=== PATIENT | female | born 2000 | race Two or more races ===

== ENCOUNTER 2025-04-16 08:51 | Outpatient (AMB) | payer OTHER, SELFPAY ==
[2025-04-16 09:07] VITALS: BP 124/83; PULSE 84; RESP 17; TEMP 36.7; O2SAT 98; BMI 32.8
--- NOTE | 2025-04-16 09:07 | AMB.OBINITIA ---
Vital Signs 04/16/25 09:07 Height 1.73 m Height Method Stated Weight 98.089 kg Weight Measurement Method Standing Scale BMI 32.8 BP 124/83 Blood Pressure Source Automatic Cuff Blood Pressure Location Right Upper Arm Position Sitting Respiration 17 Pulse 84 Pulse Source Monitor Temp 98.1 F Temp Source Temporal Artery Scan Pulse Oximetry (%) 98 Oxygen Delivery Method Room Air Allergies/Home Meds Allergies & Medications Allergies No Known Allergies Allergy (Verified 04/16/25 09:08) Medication Reconciliation PNV 153-FA 400 mcg-om3 35 mg-dha 25 mg-epa 5 mg-fish oil chew tablet ( Gummies) 1 tab PO QDAY 90 days #90 tabs 04/16/25 [Rx] doxylamine 10 mg-pyridoxine (vit B6) 10 mg tablet,delayed release (Diclegis) 1 tab PO BID 30 days #60 tabs 04/16/25 [Rx] Intake Visit Data Collection New Patient or Established: Established Patient (seen at [facility] within 3 years) Reason for Visit:: OBI Seen by Clinical Staff ONLY (RN/MA): No Restaurant Supervisor Required: No Do You Feel Safe at Home: Yes Authorities Contacted: N/A PCP or OBGYN visit in last 3 months: No Hx Now: Yes Are you currently on any form of Control: No Pain Present Currently: No Pain Scale Used: Castillo-Taylor/Numerical Pain scale:: 0 Smoking Status Smoking Status: Never smoker Questionnaires Covid-19 Vaccine Questionnaire Has patient been vacinated for Covid-19 Have you been vacinated for Covid-19: Yes PHQ-9 PHQ-2 Over the last 2 weeks, how often have you been bothered by any of the following problems? 1. Little interest or pleasure in doing things: not at all 2. Feeling down, depressed, or hopeless: not at all Total score: 0 PHQ-9 3. Trouble falling or staying asleep, or sleeping too much: Not at all 4. Feeling tired or having little energy: Not at all 5. Poor appetite or overeating: Not at all 6. Feeling bad about yourself - or that you are a failure or have let yourself or your family down: Not at all 7. Trouble concentrating on things, such as reading the newspaper or watching television: Not at all 8. Moving or speaking so slowly that other people could have noticed? - Or the opposite - being so fidgety or restless that you have been moving around a lot more than usual: not at all 9. Thoughts that you would be better off or of hurting yourself in some way: Not at all Total score: 0 If you checked off any problems, how difficult have these problems made it for you to do your work, take care of things at home, or get along with other people?: not difficult at all Source: Developed by Drs. Collins Asencio, Dottie Whitfield, Basilio Eden and colleagues, with an educational joey from [employer]. Depression screen completed yes Social History Living Situation History Marital Status: Life Partner Lives With: Family Housing: House Tobacco History Smoking Status: Never smoker Second Hand Smoke Exposure: No Alcohol History Alcohol Intake: Never Domestic Abuse History Do You Feel Safe at Home: Yes History of Present Illness HPI Narrative 24-year-old 1 para 0 for OBI. Patient has a last menstrual period January 09, 2024. This gives a due date October 10, 2025. Sure dates. Menses are regular every month. Patient denies any existence existing health issues. She reports that she drink occasionally but none with the . And she had a history of septorhinoplasty. She had some spotting and bleeding with this a week ago and was seen in [place] for that. Treated with progestation x 1 week. An ultrasound was done and she was found to have twins at 14 weeks. Spotting some now. Occasional cramp. OB Initial Visit OB Flowsheet OB Flowsheet Initial Weight: Not Recorded Date <del>?</del> EGA Weight BP Alb Glu CTX Pres Fundal ht FHR Mov Dilation Station Effacement Hx Notes Visit Note 04/16/25 <del>?</del> 14w 0d 98.089 kg 124/83 absent unknown 15 142 active 24-year-old 1 para 0 for OB initial. Patient has a last period January 08, 2025. Estimated due date October 10, 2025. Patient had gone to [place] for vacation last week and was seen in the ER there. Ultrasound done and she has a twin gestation at 14 weeks. And she was given progesterone x 7 days which she completed. She has some spotting now but no cramps. She denies any existing medical problems. She has a previous history she drinks occasionally but none with the . And she had a septorhinoplasty.. 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 Schedule MFM appointment at [facility]. OB panel, NIPT and carrier screen today. I ordered Gummies for her and I started Diclegis to take twice a day. Discussed comfort measures for nausea and vomiting I discussed ER precautions and danger signs and symptoms and to return in 2 weeks with OB. Menstrual History Menstrual reliability: unknown Flow: normal Menstrual regularity: irregular Monthly: No Age at menarche: 11 On control pills at conception: No OB History : 1 Infection History & Risk Evaluation History of STDs: none HIV risk evaluation: low risk Hepatitis B risk evaluation: low risk Patient or partner has history of Genital Herpes: No Varicella/chicken pox status: unknown Genetic Screening & History Genetic Screening/Teratology Counseling - Includes patient, baby's father, or anyone in either family with: 1. Patient's age 35 years or older as of estimated date of delivery: No 2. Thalassemia (Lithuanian, German, Mediterranean, or Background); MCV less than 80: No 3. Neural Tube Defect (Meningomyelocele, Spina Bifida, or Anencephaly): No 4. Congenital Heart Defect: No 5. Down Syndrome: No 6. Nima-Sachs (Ashkenazi Anabaptist, Cajun, Czech Kosovan): No 7. Parvin Disease (Ashkenazi Anabaptist): No 8. Familial Dysautonomia (Ashkenazi Anabaptist): No 9. Sickle Cell Disease or Trait (): No 10. Hemophilia or other blood disorders: No 11. Muscular Dystrophy: No 12. Cystic Fibrosis: No 13. [place]'s Chorea: No 14. Mental Retardation/Autism: No 15. Other inherited genetic or chromosomal disorder: No 16. Maternal Metabolic Disorder (EG,TYPE 1 Diabetes, PKU): No 17. Patient or baby's father had a child with defects not listed above: No 18. Recurrent loss or a stillbirth: No 19. Medications (including supplements, vitamins, herbs or otc drugs)/illicit/recreational drugs/alcohol since last menstrual period: No 20. Any other: No Infection History 1. Live with someone with TB or exposed to TB: No 2. Rash or viral illness since last menstrual period: No 3. Hepatitis B,C: No Other (see comments) Source: [employer] Review of Systems Review of Systems Systems Reviewed: All systems reviewed, normal except as documented Exam General Limitations: no limitations General Appearance: alert, in no apparent distress, comfortable, cooperative, healthy appearing, well developed and well groomed Head Head exam: atraumatic, normocephalic and normal inspection Chest Chest inspection: Present normal inspection and symmetric chest wall rise Resp Respiratory exam: Present normal lung sounds bilaterally Card Cardiovascular exam: Present regular rate, normal rhythm and normal heart sounds Abdominal Abdominal exam: Present soft and normal bowel sounds Psych Psychiatric exam: Present normal affect and normal mood Office Procedures OB Clinic LOC & Office Proc's Nursing/Assessment Patient Status: Established Patient OB Clinic Nursing Assessment: Medication Reconciliation, Update PMH in EMR and Vital Signs OB Clinic Coordination of Care: Complex Care and Chronic Disease 1-5, Consent,records obtained, informed consent, Education Simp Pt/Fam, Lab and Imaging orders and Staff clarify orders Special Needs: Heart tones Established Patient Charge Established Patient Point Assignment: 130 Established Patient Point Charge: EP Level 4 (120-155) Assessment & Plan Diagnosis / Problem List (1) Encounter for supervision of high risk in second trimester, antepartum: Status: Acute (2) Twin gestation in second trimester: Status: Acute Plan Plan for today is to draw OB panel with hCG quant x 1, and hemoglobin A1c. Discussed NIPT and carrier screens with patient she is going to contact her insurance to see if it is covered or not. Referral to maternal- medicine made. I discussed SAB precautions and increased rest. Increase fluids. I gave patient Diclegis twice daily for nausea and vomiting. And discussed comfort measures as well and patient to return in 2 weeks for follow-up with OB Additional Plan Follow Up: 2 Weeks (obc)
== END 2025-04-16 09:36 | disposition home or self-care (01) ==
PROVIDERS: Supervising Provider Advanced Practice Midwife; Visit Provider Advanced Practice Midwife
DX: O09.892 Supervision of other high risk pregnancies, second trimester (principal); O30.002 Twin pregnancy, unspecified number of placenta and unspecified number of amniotic sacs, second trimester; Z3A.14 14 weeks gestation of pregnancy
CPT/HCPCS: 99214; G0463

== ENCOUNTER → 2025-04-16 | Outpatient (CLI) | payer OTHER, SELFPAY ==
[2025-04-16 11:36] LABS: Basophils # (Auto) 0.0 Thou/mm3 (0.0-0.2); Basophils % (Auto) 0 % (0-2.5); Eosinophils # (Auto) 0.1 Thou/mm3 (0.0-0.5); Eosinophils % (Auto) 1 % (0-10); Hematocrit 36.9 % (36.0-46.0); Hemoglobin 13.2 g/dL (12.0-16.0); Immature Granulocytes Auto 0.03 Thou/mm3 (0.00-0.00); Lymphocytes # (Auto) 1.5 Thou/mm3 (1.0-4.8); Lymphocytes % (Auto) 14 % (10-50); Mean Corpuscular HGB Conc 35.8 g/dl (31.0-37.0); Mean Corpuscular Hemoglobin 32.4 pg (25.0-35.0); Mean Corpuscular Volume 91 fL (80-100); Monocytes # (Auto) 0.7 Thou/mm3 (0.0-0.8); Monocytes % (Auto) 7 % (0-12); Neutrophils # (Auto) 8.1 Thou/mm3 (1.8-7.7); Neutrophils % (Auto) 78 % (37-80); Nucleated Red Blood Cell # 0.00 Thou/mm3 (0.00-0.00); Nucleated Red Blood Cell % 0 /100 WBC (0); Platelet Count 261 Thou/mm3 (140-440); RDW Standard Deviation 42.4 fL (36.4-46.3); Red Blood Count 4.07 Miln/mm3 (4.00-5.20); White Blood Count 10.5 Thou/mm3 (3.6-11.0)
[2025-04-16 11:59] LABS: Glucose Estimated Average 97 mg/dL (80-131); Hemoglobin A1C 5.0 % Hgb (4.8-6.0)
[2025-04-16 12:41] LABS: Hepatitis B Surface Antigen Non Reactive (Non React); Hepatitis C Antibody Non Reactive (Non React); Rubella, IgG Antibody Reactive (Immune)
[2025-04-16 12:43] LABS: Beta HCG,Quantitative 104526 mIU/mL (<5.0)
[2025-04-16 13:44] LABS: Chlamydia trachomatis PCR Negative (Not Detect); Neisseria Gonorrhoeae DNA PCR Negative (Not Detect); Trichomonas Negative (Negative)
[2025-04-16 16:08] LABS: HIV (1&2) Antibody Rapid Non-Reactive
== END | disposition home or self-care (01) ==
LOC: COPL 09:55
PROVIDERS: PCP Family Medicine; Referring Provider Advanced Practice Midwife; Visit Provider Advanced Practice Midwife
DX: Z34.90 Encounter for supervision of normal pregnancy, unspecified, unspecified trimester (principal)
CPT/HCPCS: 36415; 83036; 84702; 85025; 86703; 86762; 86803; 86850; 86900; 86901; 87086; 87340; 87491; 87591; 87661

== ENCOUNTER 2025-05-02 10:26 | Outpatient (AMB) | payer OTHER, SELFPAY ==
[2025-05-02 11:05] VITALS: BP 129/81; PULSE 87; RESP 16; TEMP 36.9; O2SAT 95; BMI 33.5
--- NOTE | 2025-05-02 11:05 | AMB.OBVISIT ---
Vital Signs 05/02/25 11:05 Height 1.73 m Height Method Stated Weight 100.244 kg Weight Measurement Method Standing Scale BMI 33.5 BP 129/81 Blood Pressure Source Automatic Cuff Blood Pressure Location Left Upper Arm Position Sitting Respiration 16 Pulse 87 Pulse Source Monitor Temp 98.4 F Temp Source Oral Pulse Oximetry (%) 95 Oxygen Delivery Method Room Air Allergies/Home Meds Allergies & Medications Allergies No Known Allergies Allergy (Verified 07/02/25 08:36) Medication Reconciliation aspirin 81 mg tablet 81 mg PO QDAY 07/02/25 [History Confirmed 07/02/25] docosahexaenoic acid 200 mg capsule ( DHA) mg PO 07/02/25 [History Confirmed 07/02/25] Intake Visit Data Collection New Patient or Established: Established Patient (seen at [facility] within 3 years) Reason for Visit:: CARE Seen by Clinical Staff ONLY (RN/MA): No Hogshead Mat Assembler Required: No Do You Feel Safe at Home: Yes Authorities Contacted: N/A PCP or OBGYN visit in last 3 months: Yes Hx Now: Yes Are you currently on any form of Control: No Pain Present Currently: No Pain Scale Used: Castillo-Taylor/Numerical Pain scale:: 0 Smoking Status Smoking Status: Never smoker Questionnaires Covid-19 Vaccine Questionnaire Has patient been vacinated for Covid-19 Have you been vacinated for Covid-19: Yes PHQ-9 PHQ-2 Over the last 2 weeks, how often have you been bothered by any of the following problems? 1. Little interest or pleasure in doing things: not at all 2. Feeling down, depressed, or hopeless: not at all Total score: 0 PHQ-9 3. Trouble falling or staying asleep, or sleeping too much: Not at all 4. Feeling tired or having little energy: Not at all 5. Poor appetite or overeating: Not at all 6. Feeling bad about yourself - or that you are a failure or have let yourself or your family down: Not at all 7. Trouble concentrating on things, such as reading the newspaper or watching television: Not at all 8. Moving or speaking so slowly that other people could have noticed? - Or the opposite - being so fidgety or restless that you have been moving around a lot more than usual: not at all 9. Thoughts that you would be better off or of hurting yourself in some way: Not at all Total score: 0 Source: Developed by Drs. Collins Asencio, Dottie Whitfield, Basilio Eden and colleagues, with an educational joey from [employer]. Depression screen completed yes Social History Living Situation History Lives With: Family Housing: House Tobacco History Smoking Status: Never smoker Second Hand Smoke Exposure: No Alcohol History Alcohol Intake: Never Domestic Abuse History Do You Feel Safe at Home: Yes Care OB Visit Log OB Flowsheet Initial Weight: Not Recorded Date <del>?</del> EGA Weight BP Alb Glu CTX Pres Fundal ht FHR Mov Dilation Station Effacement Hx Notes Visit Note 04/16/25 <del>?</del> 15w 0d 98.089 kg 124/83 absent unknown 15 A 142 <del>?</del> B active 24-year-old 1 para 0 for OB initial. Patient has a last period January 08, 2025. Estimated due date October 10, 2025. Patient had gone to [place] for vacation last week and was seen in the ER there. Ultrasound done and she has a twin gestation at 14 weeks. And she was given progesterone x 7 days which she completed. She has some spotting now but no cramps. She denies any existing medical problems. She has a previous history she drinks occasionally but none with the . And she had a septorhinoplasty.. 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 Schedule MFM appointment at [facility]. OB panel, NIPT and carrier screen today. I ordered Gummies for her and I started Diclegis to take twice a day. Discussed comfort measures for nausea and vomiting I discussed ER precautions and danger signs and symptoms and to return in 2 weeks with OB. 05/02/25 <del>?</del> 17w 2d 100.244 kg 129/81 absent unknown 20 A 135 <del>?</del> B 145 active - Lynne Santillan is a patient with dichorionic diamniotic twins presenting for follow-up after experiencing bleeding and clotting. - She reports bleeding and clotting for approximately one month duration. - Following the bleeding episode, she began experiencing some discharge. - She has pictures of the discharge to show the provider. - She visited the emergency room on April 17 at [facility] due to her symptoms. - The ER recommended follow-up with obstetrics but would not accept her as a patient at that time. - She has been seen by Randi (presumably another provider) once before this visit. - She underwent NIPT testing approximately 2 Saturdays prior to this visit through [facility]. - She and her partner do not want to know the genders of the babies. 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 - Patient to request workplace accommodation forms from for completion - Maternal- medicine consultation for twin surveillance starting around 20 weeks - Follow precautions: avoid heavy lifting, avoid abdominal trauma, avoid carrying heavy weights, limit walking long distances and climbing stairs - Retrieve NIPT results from [facility] - Follow up in 2 weeks (as requested at [facility]) 05/21/25 <del>?</del> 20w 0d 104.099 kg 133/87 absent unknown A 150 <del>?</del> B 135 active at 19w0d with twin gestation; NIPT negative for SMA, CF, T21/18/13; OB labs normal; both FHRs detected; pt experiencing nausea with PNVs, no cramping/spotting. Plan: Confirm correct NIPT for twins via [facility], repeat if needed; f/u at [facility] Monday for anatomy scan; switch to gummy PNVs; RTC in 2w; call pt with lab update. 06/10/25 <del>?</del> 22w 6d 105.914 kg 125/82 absent unknown A 145 <del>?</del> B 155 - Lynne Santillan is a female presenting for an ultrasound examination of her twin . - The ultrasound revealed: - Twin A: Positioned showing its buttocks - Twin B: Both heads and the dividing membrane visible - Patient expressed interest in obtaining side view images of the fetuses Plan - Follow up for next ultrasound appointment - Attend scheduled MFM (Maternal- Medicine) appointment for high-resolution scan 07/02/25 <del>?</del> 26w 0d 107.955 kg 122/86 absent unknown A 131 <del>?</del> B 141 active - Lynne Santillan is a gravity 1 para 0 patient at 25 weeks and 0 days gestation with dichorionic diamniotic twin here for routine care. - Patient had [facility] ultrasound on 06/23/2025 showing twin with fetus A (female, cephalic, 830 grams, 80th percentile) and fetus B (male, transverse, 725 grams, 39th percentile) with 13% discordancy. - Both babies demonstrate normal anatomy with normal amniotic fluid levels. - Patient reports no specific complaints or concerns during this visit. - NIPT testing has been completed. - Patient is approaching 26 weeks gestation with due date of 10/08 based on updated LMP of 01/04. - Schedule her next appointment in 4 weeks - Perform one-hour glucose test today - Continue [facility] ultrasounds; her next appointment at [facility] on 07/14 - Plan for weekly visits after 30 weeks - Administer betamethasone shots at 32 weeks for lung maturation - Conduct anemia check and RPR test between 28-30 weeks - Anticipate delivery at 37 weeks or earlier - Determine route of delivery based on positioning closer to delivery date - Complete HR form for maternity leave, recommended around 28-30 weeks SANA Calculator Estimated Delivery Date Method Current WG Current Estimate 10/08/25 Ultrasound #1 26w 6d Other Estimates 10/15/25 LMP (Uncertain) 25w 6d # 2 Notes Visit Date: 07/02/25 Last Updated by: Angel Schuler MD - Date: 06/23/2025 - [facility] ultrasound: Twin , dichorionic diamniotic, 2nd trimester at 25 weeks 0 days gestation - Fetus A: 830 grams (1 lb 13 oz), 80th percentile, female, cephalic presentation, normal anatomy, normal amniotic fluid - Fetus B: 725 grams (1 lb 10 oz), 39th percentile, male, transverse presentation with head to maternal right, normal anatomy, normal amniotic fluid - Growth discordancy: 13% - Cervix: long and closed on transabdominal ultrasound - NIPT test: completed (results not specified) Visit Date: 05/21/25 Last Updated by: Angel Schuler MD - NIPT ([facility]): - SMA: Negative - Cystic fibrosis: Negative - Trisomy 21, 18, 13: Negative - sex: Male (potentially unreliable due to twin gestation) - Initial OB panel ([facility]): - Hepatitis B: Negative - Hepatitis C: Negative - HIV: Negative - Gonorrhea: Negative - Chlamydia: Negative - Trichomonas: Negative - Hemoglobin: 13.2 g/dL - Urinalysis: Within normal limits - Ultrasound: - Twin gestation confirmed - heartbeats visualized for both twins - Different heart rates observed for each twin Visit Date: 04/16/25 Last Updated by: Randi Painting, [facility] 24 yo . IUP 14 week,twins. LMP 01/08/25. EDC: 10/10/25 Assessment & Plan Diagnosis / Problem List (1) Dichorionic diamniotic twin gestation: Status: Acute (2) Twin gestation in second trimester: Status: Acute (3) Encounter for supervision of high risk in second trimester, antepartum: Status: Acute Plan Problem List - Twin - Resolved retroplacental hematoma Assessment Twin at approximately 15-16 weeks gestation with dichorionic diamniotic twins, with Baby A heart rate 140 bpm and Baby B heart rate 153 bpm. History of bleeding and clotting for approximately one month that has resolved, likely representing a retroplacental hematoma that has resolved as current ultrasound shows placenta is clear without clots. Patient presented to emergency room on April 17 for evaluation. Previous ultrasound from April 17 showed Baby A at 14 weeks 4 days and Baby B at 15 weeks 1 day with heart rates of 149 and 143 bpm respectively, normal amniotic fluid, and no placental hemorrhage noted. Current examination shows both fetuses appear grossly normal with clear placentas. 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
== END 2025-05-02 11:53 | disposition home or self-care (01) ==
LOC: HODSOBC 10:26
PROVIDERS: Supervising Provider Obstetrics & Gynecology; Visit Provider Obstetrics & Gynecology
DX: O09.892 Supervision of other high risk pregnancies, second trimester (principal); O30.042 Twin pregnancy, dichorionic/diamniotic, second trimester; O32.2XX2 Maternal care for transverse and oblique lie, fetus 2; Z3A.17 17 weeks gestation of pregnancy
CPT/HCPCS: 99214; G0463

== ENCOUNTER 2025-05-21 10:33 | Outpatient (AMB) | payer OTHER, SELFPAY ==
[2025-05-21 10:45] VITALS: BP 133/87; PULSE 98; RESP 17; TEMP 36.8; O2SAT 98; BMI 34.7
--- NOTE | 2025-05-21 10:45 | OBCLNT_ITS ---
Vital Signs 05/21/25 10:45 Height 1.73 m Height Method Measured Weight 104.099 kg Weight Measurement Method Standing Scale BMI 34.7 BP 133/87 H Blood Pressure Source Automatic Cuff Blood Pressure Location Right Upper Arm Position Sitting Respiration 17 Pulse 98 Pulse Source Monitor Temp 98.3 F Temp Source Temporal Artery Scan Pulse Oximetry (%) 98 Oxygen Delivery Method Room Air Allergies/Home Meds Allergies & Medications Allergies No Known Allergies Allergy (Verified 05/21/25 10:46) Medication Reconciliation PNV 153-FA 400 mcg-om3 35 mg-dha 25 mg-epa 5 mg-fish oil chew tablet ( Gummies) 1 tab PO QDAY 90 days #90 tabs 04/16/25 [Rx Confirmed 05/21/25] doxylamine 10 mg-pyridoxine (vit B6) 10 mg tablet,delayed release (Diclegis) 1 tab PO BID 30 days #60 tabs 04/16/25 [Rx Confirmed 05/21/25] Intake Visit Data Collection New Patient or Established: Established Patient (seen at [facility] within 3 years) Reason for Visit:: OBC Consent obtained for Telemed Visit: No Seen by Clinical Staff ONLY (RN/MA): No Rn Bsn Required: No Do You Feel Safe at Home: Yes Authorities Contacted: N/A PCP or OBGYN visit in last 3 months: Yes Date of Last PCP or OBGYN visit: 05/02/25 Hx Now: Yes Are you currently on any form of Control: No Pain Present Currently: No Pain Scale Used: Castillo-Taylor/Numerical Pain scale:: 0 Smoking Status Smoking Status: Never smoker Questionnaires Covid-19 Vaccine Questionnaire Has patient been vacinated for Covid-19 Have you been vacinated for Covid-19: Yes PHQ-9 PHQ-2 Over the last 2 weeks, how often have you been bothered by any of the following problems? 1. Little interest or pleasure in doing things: not at all PHQ-9 8. Moving or speaking so slowly that other people could have noticed? - Or the opposite - being so fidgety or restless that you have been moving around a lot more than usual: not at all Source: Developed by Drs. Collins Asencio, Dottie Whitfield, Basilio Eden and colleagues, with an educational joey from [employer]. Social History Living Situation History Lives With: Family Housing: House Tobacco History Smoking Status: Never smoker Second Hand Smoke Exposure: No Alcohol History Alcohol Intake: Never Domestic Abuse History Do You Feel Safe at Home: Yes Care OB Visit Log OB Flowsheet Initial Weight: Not Recorded Date -?-?-?-?-?-?-?-?-?-?-?-?- EGA Weight BP Alb Glu CTX Pres Fundal ht FHR Mov Dilation Station Effacement Hx Notes Visit Note 04/16/25 -?-?-?-?-?-?-?-?-?-?-?-?- 14w 0d 98.089 kg 124/83 absent unknown 15 A 142 -?-?-?-?-?-?-?-?-?-?-?-?- B active 24-year-old g ravida 1 para 0 for OB initial. Patient has a last period January 08, 2025. Estimated due date October 10, 2025. Patient had gone to [place] for vacation last week and was seen in the ER there. Ultrasound done and she has a twin gestation at 14 weeks. And she was given progesterone x 7 days which she completed. She has some spotting now but no cramps. She denies any existing medical problems. She has a previous history she drinks occasionally but none with the . And she had a septorhinoplasty.. 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 Winnie RENDON appointment at [facility]. OB panel, NIPT and carrier screen today. I ordered Gummies for her and I started Diclegis to take twice a day. Discussed comfort measures for nausea and vomiting I discussed ER precautions and danger signs and symptoms and to return in 2 weeks with OB. 05/21/25 -?-?-?-?-?-?-?-?-?-?-?-?- 19w 0d 104.099 kg 133/87 absent unknown A 150 -?-?-?-?-?-?-?-?-?-?-?-?- B 135 active at 19w0d with twin gestation; NIPT negative for SMA, CF, T21/18/13; OB labs normal; both FHRs detected; pt experiencing nausea with PNVs, no cramping/spotting. Plan: Conf irm correct NIPT for twins via [facility], repeat if needed; f/u at [facility] Monday for anatomy scan; switch to gummy PNVs; RTC in 2w; call pt with lab update. SANA Calculator Estimated Delivery Date Method Current WG Current Estimate 10/15/25 LMP (Certain) 19w 0d # 2 Notes Visit Date: 05/21/25 Last Updated by: Angel Schuler MD - NIPT ([facility]): - SMA: Negative - Cystic fibrosis: Negative - Trisomy 21, 18, 13: Negative - sex: Male (potentially unreliable due to twin gestation) - Initial OB panel ([facility]): - Hepatitis B: Negative - Hepatitis C: Negative - HIV: Negative - Gonorrhea: Negative - Chlamydia: Negative - Trichomonas: Negative - Hemoglobin: 13.2 g/dL - Urinalysis: Within normal limits - Ultrasound: - Twin gestation confirmed - heartbeats visualized for both twins - Different heart rates observed for each twin Visit Date: 04/16/25 Last Updated by: Randi Painting CNM 24 yo . IUP 14 week,twins. LMP 01/08/25. EDC: 10/10/25 Office Procedures OB Clinic LOC & Office Proc's Nursing/Assessment Patient Status: Established Patient OB Clinic Nursing Assessment: Medication Reconciliation, Update PMH in EMR and Vital Signs OB Clinic Coordination of Care: Complex Care and Chronic Disease 1-5, Consent,records obtained, informed consent and Education Simp Pt/Fam Special Needs: Heart tones Established Patient Charge Established Patient Point Assignment: 105 Established Patient Point Charge: EP Level 3 (80-115) Assessment & Plan Diagnosis / Problem List (1) Twin gestation in second trimester: Status: Acute (2) Encounter for supervision of high risk in second trimester, antepartum: Status: Acute
== END 2025-05-21 11:25 | disposition home or self-care (01) ==
LOC: HODSOBC 10:33
PROVIDERS: Supervising Provider Obstetrics & Gynecology; Visit Provider Obstetrics & Gynecology
DX: O09.892 Supervision of other high risk pregnancies, second trimester (principal); O30.002 Twin pregnancy, unspecified number of placenta and unspecified number of amniotic sacs, second trimester; Z3A.19 19 weeks gestation of pregnancy
CPT/HCPCS: 99213; G0463

== ENCOUNTER 2025-06-06 08:28 | Outpatient (AMB) | payer OTHER, SELFPAY ==
--- NOTE | 2025-06-06 08:38 | OBCLNT_ITS ---
Vital Signs 06/06/25 08:39 Height 1.73 m Height Method Stated Weight 105.744 kg Weight Measurement Method Standing Scale BMI 35.3 BP 131/84 H Blood Pressure Source Automatic Cuff Blood Pressure Location Left Upper Arm Position Sitting Respiration 20 Pulse 98 Pulse Source Monitor Temp 97.8 F Temp Source Oral Pulse Oximetry (%) 98 Oxygen Delivery Method Room Air Allergies/Home Meds Allergies & Medications Allergies No Known Allergies Allergy (Verified 07/02/25 08:36) Medication Reconciliation aspirin 81 mg tablet 81 mg PO QDAY 07/02/25 [History Confirmed 07/02/25] docosahexaenoic acid 200 mg capsule ( DHA) mg PO 07/02/25 [History Confirmed 07/02/25] blood sugar diagnostic (Blood Glucose Test strips) #100 ea 07/11/25 [Rx] blood-glucose meter #1 ea 07/11/25 [Rx] lancets 21 gauge #100 ea 07/11/25 [Rx] Intake Visit Data Collection New Patient or Established: Established Patient (seen at [facility] within 3 years) Reason for Visit:: CARE Seen by Clinical Staff ONLY (RN/MA): No Plant Propagator Required: No Do You Feel Safe at Home: Yes Authorities Contacted: N/A PCP or OBGYN visit in last 3 months: Yes Hx Now: Yes Are you currently on any form of Control: No Pain Present Currently: No Pain Scale Used: Castillo-Taylor/Numerical Pain scale:: 0 Smoking Status Smoking Status: Never smoker Questionnaires Covid-19 Vaccine Questionnaire Has patient been vacinated for Covid-19 Have you been vacinated for Covid-19: Yes PHQ-9 PHQ-2 Over the last 2 weeks, how often have you been bothered by any of the following problems? 1. Little interest or pleasure in doing things: not at all 2. Feeling down, depressed, or hopeless: not at all Total score: 0 PHQ-9 3. Trouble falling or staying asleep, or sleeping too much: Not at all 4. Feeling tired or having little energy: Not at all 5. Poor appetite or overeating: Not at all 6. Feeling bad about yourself - or that you are a failure or have let yourself or your family down: Not at all 7. Trouble concentrating on things, such as reading the newspaper or watching television: Not at all 8. Moving or speaking so slowly that other people could have noticed? - Or the opposite - being so fidgety or restless that you have been moving around a lot more than usual: not at all 9. Thoughts that you would be better off or of hurting yourself in some way: Not at all Total score: 0 Source: Developed by Drs. Collins Asencio, Dottie Whitfield, Basilio Eden and colleagues, with an educational joey from [employer] Depression screen completed yes Social History Living Situation History Lives With: Family Housing: House Tobacco History Smoking Status: Never smoker Second Hand Smoke Exposure: No Alcohol History Alcohol Intake: Never Domestic Abuse History Do You Feel Safe at Home: Yes Care OB Visit Log OB Flowsheet Initial Weight: Not Recorded Date -?-?-?-?-?-?-?-?-?-?-?-?- EGA Weight BP Alb Glu CTX Pres Fundal ht FHR Mov Dilation Station Effacement Hx Notes Visit Note 04/16/25 -?-?-?-?-?-?-?-?-?-?-?-?- 15w 0d 98.089 kg 124/83 absent unknown 15 A 142 -?-?-?-?-?-?-?-?-?-?-?-?- B active 24-year-old g ravida 1 para 0 for OB initial. Patient has a last period January 08, 2025. Estimated due date October 10, 2025. Patient had gone to [place] for vacation last week and was seen in the ER there. Ultrasound done and she has a twin gestation at 14 weeks. And she was given progesterone x 7 days which she completed. She has some spotting now but no cramps. She denies any existing medical problems. She has a previous history she drinks occasionally but none with the . And she had a septorhinoplasty.. 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 Winnie RENDON appointment at [facility]. OB panel, NIPT and carrier screen today. I ordered Gummies for her and I started Diclegis to take twice a day. Discussed comfort measures for nausea and vomiting I discussed ER precautions and danger signs and symptoms and to return in 2 weeks with OB. 05/02/25 -?-?-?-?-?-?-?-?-?-?-?-?- 17w 2d 100.244 kg 129/81 absent unknown 20 A 135 -?-?-?-?-?-?--?-?-?-?-?-?- B 145 active - Azam Santillan is a patient with dichorionic diamniotic twins presenting for follow-up after experiencing bleeding and clotting. - She reports bleeding and clotting for approximately one month duration. - Following the bleeding episode, she be rohan experiencing some discharge. - She has pictures of the discharge to show the provider. - She visited the emergency room on April 17 at [facility] due to her symptoms. - The ER recommended follow-up with ob xochilt but would not accept her as a patient at that time. - She has been seen by Randi (presumably another provider) once before this visit. - She underwent NIPT testing approximate ly 2 Saturdays prior to this visit through [facility]. - She and her partner do not want to k now the genders of the babies. 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 - Patient to request workplace accommoda tion forms from for completion - Maternal- medicine consultation f or twin surveillance starting around 20 weeks - Follow precautions: avoid heavy liftin g, avoid abdominal trauma, avoid carrying heavy weights, limit walking long distances and climbing stairs - Retrieve NIPT results from [facility] - Follow up in 2 weeks (as requested at [employer]) 05/21/25 -?-?-?-?-?-?-?-?-?-?-?-?- 20w 0d 104.099 kg 133/87 absent unknown A 150 -?-?-?-?-?-?-?-?-?-?-?-?- B 135 active at 19w0d with twin gestation; NIPT negative for SMA, CF, T21//13; OB labs normal; both FHRs detected; pt experiencing nausea with PNVs, no cramping/spotting. Plan: Con firm correct NIPT for twins via [facility], repeat if needed; f/u at [facility] Monday for anatomy scan; switch to gummy PNVs; RTC in 2w; call pt with lab update. 06/06/25 -?-?-?-?-?-?-?-?-?-?-?-?- 22w 2d 105.744 kg 131/84 absent unknown A 145 -?-?-?-?-?-?-?-?-?-?-?-?- B 155 active - Azam Santillan is a female with dichorionic diamniotic twins presenting for routine follow-up after recent ultrasound imaging. - She reports experiencing some sharp pa in, which she attributes to stretching effects related to her . - She mentions her feet were really swol elisa on the day of her recent ultrasound visit. 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 - This is her first ( o ne). - She is currently taking ASA to promote blood flow to the placenta - Continue baby aspirin (blood thinner) to promote blood flow to placenta and support growth - Schedule follow-up appointment in 4 we eks - Continue serial ultrasound monitoring to assess weight discrepancy (currently 3% difference between twins) - Monitor for labor risk given d ichorionic diamniotic twin 06/10/25 -?-?--?-?-?-?-?-?-?-?-?-?- 22w 6d 105.914 kg 125/82 absent unknown A 145 -?-?-?-?-?-?-?-?-?-?-?-?- B 155 - Lynne Santillan is a female presenting for an ultrasound examination of her twin . - The ultrasound revealed: - Twin A: Positioned showing its butto cks - Twin B: Both heads and the dividing membrane visible - Patient expressed interest in obtaining side view images of the f etuses Plan - Follow up for next ultrasound appointm ent - Attend scheduled MFM (Maternal- M edicine) appointment for high-resolution scan 07/02/25 -?-?-?-?-?-?-?-?-?-?-?-?- 26w 0d 107.955 kg 122/86 absent unknown A 131 -?-?-?-?-?-?-?-?-?-?-?-?- B 141 active - Azam Santillan is a gravity 1 para 0 patient at 25 weeks and 0 days gestation with dichorionic diamniotic twin here for routine care. - Patient had [facility] ultrasound on showing twin with fetus A (female, cephalic, 830 grams, 80th percentile) and fetus B (male, transverse, 725 grams, 39th percentile) with 13% discordancy. - Both babies demonstrate normal anatomy with normal amniotic fluid levels. - Patient reports no specific complaints or concerns during this visit. - NIPT testing has been completed. - Patient is approaching 26 weeks gestat ion with due date of 10/08 based on updated LMP of 01/04. - Schedule her next appointment in 4 weeks - Perform one-hour glucose test today - Continue [facility] ultrasounds; her next tennille ointment at [facility] on 07/14 - Plan for weekly visits after 30 weeks - Administer betamethasone shots at 32 w eeks for lung maturation - Conduct anemia check and RPR test betw een 28-30 weeks - Anticipate delivery at 37 weeks or ear lier - Determine route of delivery based on f etal positioning closer to delivery date - Complete HR form for maternity leave, recommended around 28-30 weeks SANA Calculator Estimated Delivery Date Method Current WG Current Estimate 10/08/25 Ultrasound #1 27w 3d Other Estimates 10/15/25 LMP (Uncertain) 26w 3d # 2 Notes Visit Date: 07/02/25 Last Updated by: Angel Schuler MD - Date: 06/23/2025 - [facility] ultrasound: Twin , dichorionic diamniotic, 2nd trimester at 25 weeks 0 days gestation - Fetus A: 830 grams (1 lb 13 oz), 80th percentile, female, cephalic presentation, normal anatomy, normal amniotic fluid - Fetus B: 725 grams (1 lb 10 oz), 39th percentile, male, transverse presentation with head to maternal right, normal anatomy, normal amniotic fluid - Growth discordancy: 13% - Cervix: long and closed on transabdominal ultrasound - NIPT test: completed (results not specified) Visit Date: 06/06/25 Last Updated by: Angel Schuler MD Laboratory, Imaging, and Diagnostic Test Results - Ultrasound (performed in [place]): - Dichorionic diamniotic twin - Baby A: 345 grams (12 ounces), cephalic presentation, normal anatomy survey, female gender, 94th percentile for growth - Baby B: 337 grams, normal anatomy survey, 91st percentile for growth - Weight discrepancy: 3% between twins - Transvaginal cervical length: 4.5 cm - heart rates: Baby A 133 bpm, Baby B 153 bpm Visit Date: 05/21/25 Last Updated by: Angel Schuler MD - NIPT ([facility]): - SMA: Negative - Cystic fibrosis: Negative - Trisomy 21, 18, 13: Negative - sex: Male (potentially unreliable due to twin gestation) - Initial OB panel ([facility] lab): - Hepatitis B: Negative - Hepatitis C: Negative - HIV: Negative - Gonorrhea: Negative - Chlamydia: Negative - Trichomonas: Negative - Hemoglobin: 13.2 g/dL - Urinalysis: Within normal limits - Ultrasound: - Twin gestation confirmed - heartbeats visualized for both twins - Different heart rates observed for each twin Visit Date: 04/16/25 Last Updated by: Randi Painting CNM 24 yo . IUP 14 week,twins. LMP 01/08/25. EDC: 10/10/25 Assessment & Plan Diagnosis / Problem List (1) Gestational diabetes mellitus: Status: Acute (2) Dichorionic diamniotic twin gestation: Status: Acute (3) Twin gestation in second trimester: Status: Acute Plan Problem List - Twin , dichorionic diamniotic - Sharp pain during Assessment Dichorionic diamniotic twin with appropriate growth and low labor risk. Both fetuses demonstrate normal anatomy surveys with Baby A measuring 345 grams (94th percentile) and Baby B measuring 337 grams (91st percentile), representing a 3% weight discrepancy which is within acceptable limits. heart rates are reassuring at 133 bpm for Baby A and 153 bpm for Baby B. Cervical length measures 4.5 centimeters on transvaginal ultrasound, indicating low risk for labor. Patient reports sharp pain consistent with normal stretching. Pedal edema was noted on examination day. Plan - Continue baby aspirin (blood thinner) to promote blood flow to placenta and support growth - Schedule follow-up appointment in 4 weeks - Continue serial ultrasound monitoring to assess weight discrepancy (currently 3% difference between twins) - Monitor for labor risk given dichorionic diamniotic twin 1. Progress Reviewed gestational age, growth, and heart rate. Baby A measuring 345 grams (94th percentile), Baby B measuring 337 grams (91st percentile) with 3% weight discrepancy. heart rates: Baby A 133 bpm, Baby B 153 bpm. Dichorionic diamniotic twin with normal anatomy surveys. Planned frequent visits (every 2 weeks until 36 weeks, then weekly). 2. Instructed patient to monitor movements and report decreases immediately. 3. Testing Counseled on routine third-trimester labs per guidelines. Discussed potential need for ultrasound or monitoring based on risk factors. Cervical length measured at 4.5 cm indicating low risk for labor. 4. Preeclampsia Precaution Educated on preeclampsia signs: severe headache, vision changes, right upper quadrant pain, sudden swelling. Advised urgent reporting of symptoms and discussed blood pressure monitoring if high risk. 5. Labor Precautions Reviewed labor signs: regular contractions, pelvic pressure, back pain, bleeding, or fluid leakage. Instructed to seek immediate care for these symptoms. Cervical length assessment shows low risk for labor. 6. Lifestyle and Delivery Preparation Reinforced vitamins, nutrition, and safe activity. Patient on blood thinner to promote placental blood flow. Discussed plan, pain management, and . Advised on labor preparation (e.g., hospital bag) and expectations. 7. Psychosocial Support Assessed emotional well-being and offered resources for mental health or vanna reddy support.
[2025-06-06 08:39] VITALS: BP 131/84; PULSE 98; RESP 20; TEMP 36.6; O2SAT 98; BMI 35.3
== END 2025-06-06 09:02 | disposition home or self-care (01) ==
LOC: HODSOBC 08:28
PROVIDERS: Supervising Provider Obstetrics & Gynecology; Visit Provider Obstetrics & Gynecology
DX: O09.892 Supervision of other high risk pregnancies, second trimester (principal); O30.042 Twin pregnancy, dichorionic/diamniotic, second trimester; O24.419 Gestational diabetes mellitus in pregnancy, unspecified control; Z3A.22 22 weeks gestation of pregnancy
CPT/HCPCS: 99214; G0463

== ENCOUNTER 2025-06-10 15:17 | Outpatient (AMB) | payer OTHER, SELFPAY ==
[2025-06-10 15:40] VITALS: BP 125/82; PULSE 100; RESP 20; TEMP 36.8; O2SAT 98; BMI 35.4
--- NOTE | 2025-06-10 15:40 | AMB.OBVISIT ---
Vital Signs 06/10/25 15:40 Height 1.73 m Height Method Stated Weight 105.914 kg Weight Measurement Method Standing Scale BMI 35.4 BP 125/82 Blood Pressure Source Automatic Cuff Blood Pressure Location Left Upper Arm Position Sitting Respiration 20 Pulse 100 Pulse Source Monitor Temp 98.2 F Temp Source Oral Pulse Oximetry (%) 98 Oxygen Delivery Method Room Air Allergies/Home Meds Allergies & Medications Allergies No Known Allergies Allergy (Verified 06/10/25 15:41) Medication Reconciliation PNV 153-FA 400 mcg-om3 35 mg-dha 25 mg-epa 5 mg-fish oil chew tablet ( Gummies) 1 tab PO QDAY 90 days #90 tabs 04/16/25 [Rx Confirmed 06/10/25] doxylamine 10 mg-pyridoxine (vit B6) 10 mg tablet,delayed release (Diclegis) 1 tab PO BID 30 days #60 tabs 04/16/25 [Rx Confirmed 06/10/25] Intake Visit Data Collection New Patient or Established: Established Patient (seen at [facility] within 3 years) Reason for Visit:: CARE Seen by Clinical Staff ONLY (RN/MA): No Fur Sorter Required: No Do You Feel Safe at Home: Yes Authorities Contacted: N/A PCP or OBGYN visit in last 3 months: Yes Hx Now: Yes Are you currently on any form of Control: No Pain Present Currently: No Pain Scale Used: Castillo-Taylor/Numerical Pain scale:: 0 Smoking Status Smoking Status: Never smoker Questionnaires Covid-19 Vaccine Questionnaire Has patient been vacinated for Covid-19 Have you been vacinated for Covid-19: Yes PHQ-9 PHQ-2 Over the last 2 weeks, how often have you been bothered by any of the following problems? 1. Little interest or pleasure in doing things: not at all 2. Feeling down, depressed, or hopeless: not at all Total score: 0 PHQ-9 3. Trouble falling or staying asleep, or sleeping too much: Not at all 4. Feeling tired or having little energy: Not at all 5. Poor appetite or overeating: Not at all 6. Feeling bad about yourself - or that you are a failure or have let yourself or your family down: Not at all 7. Trouble concentrating on things, such as reading the newspaper or watching television: Not at all 8. Moving or speaking so slowly that other people could have noticed? - Or the opposite - being so fidgety or restless that you have been moving around a lot more than usual: not at all 9. Thoughts that you would be better off or of hurting yourself in some way: Not at all Total score: 0 Source: Developed by Drs. Collins Asencio, Dottie Whitfield, Basilio Eden and colleagues, with an educational joey from [employer]. Depression screen completed yes Social History Living Situation History Lives With: Family Housing: House Tobacco History Smoking Status: Never smoker Second Hand Smoke Exposure: No Alcohol History Alcohol Intake: Never Domestic Abuse History Do You Feel Safe at Home: Yes Care OB Visit Log OB Flowsheet Initial Weight: Not Recorded Date <del>?</del> EGA Weight BP Alb Glu CTX Pres Fundal ht FHR Mov Dilation Station Effacement Hx Notes Visit Note 04/16/25 <del>?</del> 14w 0d 98.089 kg 124/83 absent unknown 15 A 142 <del>?</del> B active 24-year-old 1 para 0 for OB initial. Patient has a last period January 08, 2025. Estimated due date October 10, 2025. Patient had gone to [place] for vacation last week and was seen in the ER there. Ultrasound done and she has a twin gestation at 14 weeks. And she was given progesterone x 7 days which she completed. She has some spotting now but no cramps. She denies any existing medical problems. She has a previous history she drinks occasionally but none with the . And she had a septorhinoplasty.. 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 Schedule MFM appointment at [facility]. OB panel, NIPT and carrier screen today. I ordered Gummies for her and I started Diclegis to take twice a day. Discussed comfort measures for nausea and vomiting I discussed ER precautions and danger signs and symptoms and to return in 2 weeks with OB. 05/21/25 <del>?</del> 19w 0d 104.099 kg 133/87 absent unknown A 150 <del>?</del> B 135 active at 19w0d with twin gestation; NIPT negative for SMA, CF, T21/18/13; OB labs normal; both FHRs detected; pt experiencing nausea with PNVs, no cramping/spotting. Plan: Confirm correct NIPT for twins via [facility], repeat if needed; f/u at [place] ?s Monday for anatomy scan; switch to gummy PNVs; RTC in 2w; call pt with lab update. 06/10/25 <del>?</del> 21w 6d 105.914 kg 125/82 absent unknown A 145 <del>?</del> B 155 - Lynne Santillan is a female presenting for an ultrasound examination of her twin . - The ultrasound revealed: - Twin A: Positioned showing its buttocks - Twin B: Both heads and the dividing membrane visible - Patient expressed interest in obtaining side view images of the fetuses Plan - Follow up for next ultrasound appointment - Attend scheduled MFM (Maternal- Medicine) appointment for high-resolution scan SANA Calculator Estimated Delivery Date Method Current WG Current Estimate 10/15/25 LMP (Certain) 22w 4d # 2 Notes Visit Date: 05/21/25 Last Updated by: Angel Schuler MD - NIPT ([facility]): - SMA: Negative - Cystic fibrosis: Negative - Trisomy 21, 18, 13: Negative - sex: Male (potentially unreliable due to twin gestation) - Initial OB panel ([facility]): - Hepatitis B: Negative - Hepatitis C: Negative - HIV: Negative - Gonorrhea: Negative - Chlamydia: Negative - Trichomonas: Negative - Hemoglobin: 13.2 g/dL - Urinalysis: Within normal limits - Ultrasound: - Twin gestation confirmed - heartbeats visualized for both twins - Different heart rates observed for each twin Visit Date: 04/16/25 Last Updated by: Randi Painting CNM 24 yo . IUP 14 week,twins. LMP 4/16/25. EDC: 10/10/25 Office Procedures OB Clinic LOC & Office Proc's Nursing/Assessment Patient Status: Established Patient OB Clinic Nursing Assessment: Medication Reconciliation, Update PMH in EMR and Vital Signs OB Clinic Coordination of Care: Complex Care and Chronic Disease 1-5, Consent,records obtained, informed consent, Education Simp Pt/Fam, Lab and Imaging orders and Staff clarify orders Special Needs: Heart tones Established Patient Charge Established Patient Point Assignment: 130 Established Patient Point Charge: EP Level 4 (120-155) Assessment & Plan Diagnosis / Problem List (1) Twin gestation in second trimester: Status: Acute (2) Encounter for supervision of high risk in second trimester, antepartum: Status: Acute
== END 2025-06-10 15:53 | disposition home or self-care (01) ==
LOC: HODSOBC 15:17
PROVIDERS: Supervising Provider Obstetrics & Gynecology; Visit Provider Obstetrics & Gynecology
DX: O09.892 Supervision of other high risk pregnancies, second trimester (principal); O30.002 Twin pregnancy, unspecified number of placenta and unspecified number of amniotic sacs, second trimester; Z3A.21 21 weeks gestation of pregnancy
CPT/HCPCS: 99214; G0463

== ENCOUNTER 2025-07-02 08:28 | Outpatient (AMB) | payer OTHER, SELFPAY ==
[2025-07-02 08:32] VITALS: BP 122/86; PULSE 91; RESP 17; TEMP 36.5; O2SAT 99; BMI 36.1
--- NOTE | 2025-07-02 08:32 | OBCLNT_ITS ---
Vital Signs 07/02/25 08:32 Height 1.73 m Height Method Stated Weight 107.955 kg Weight Measurement Method Standing Scale BMI 36.1 BP 122/86 H Blood Pressure Source Automatic Cuff Blood Pressure Location Left Upper Arm Position Sitting Respiration 17 Pulse 91 Pulse Source Monitor Temp 97.7 F Temp Source Temporal Artery Scan Pulse Oximetry (%) 99 Oxygen Delivery Method Room Air Allergies/Home Meds Allergies & Medications Allergies No Known Allergies Allergy (Verified 07/02/25 08:36) Medication Reconciliation aspirin 81 mg tablet 81 mg PO QDAY 07/02/25 [History Confirmed 07/02/25] docosahexaenoic acid 200 mg capsule ( DHA) mg PO 07/02/25 [History Confirmed 07/02/25] Intake Visit Data Collection New Patient or Established: Established Patient (seen at [facility] within 3 years) Reason for Visit:: OBC Seen by Clinical Staff ONLY (RN/MA): No Camp Housekeeper Required: No Do You Feel Safe at Home: Yes Authorities Contacted: N/A PCP or OBGYN visit in last 3 months: Yes Date of Last PCP or OBGYN visit: 06/10/25 Hx Now: Yes Are you currently on any form of Control: No Pain Present Currently: No Pain Scale Used: Castillo-Taylor/Numerical Pain scale:: 0 Smoking Status Smoking Status: Never smoker Questionnaires Covid-19 Vaccine Questionnaire Has patient been vacinated for Covid-19 Have you been vacinated for Covid-19: Yes PHQ-9 PHQ-2 Over the last 2 weeks, how often have you been bothered by any of the following problems? 1. Little interest or pleasure in doing things: not at all 2. Feeling down, depressed, or hopeless: not at all Total score: 0 PHQ-9 3. Trouble falling or staying asleep, or sleeping too much: Not at all 4. Feeling tired or having little energy: Not at all 5. Poor appetite or overeating: Not at all 6. Feeling bad about yourself - or that you are a failure or have let yourself or your family down: Not at all 7. Trouble concentrating on things, such as reading the newspaper or watching television: Not at all 8. Moving or speaking so slowly that other people could have noticed? - Or the opposite - being so fidgety or restless that you have been moving around a lot more than usual: not at all 9. Thoughts that you would be better off or of hurting yourself in some way: Not at all Total score: 0 If you checked off any problems, how difficult have these problems made it for you to do your work, take care of things at home, or get along with other people?: not difficult at all Source: Developed by Drs. Collins Asencio, Dottie Whitfield, Basilio Eden and colleagues, with an educational joey from [email or web address]. Depression screen completed yes Social History Living Situation History Marital Status: Life Partner Lives With: Family Housing: House Tobacco History Smoking Status: Never smoker Second Hand Smoke Exposure: No Alcohol History Alcohol Intake: Never Domestic Abuse History Do You Feel Safe at Home: Yes Care OB Visit Log OB Flowsheet Initial Weight: Not Recorded Date -?-?-?-?-?--?-?-?-?-?-?-?- EGA Weight BP Alb Glu CTX Pres Fundal ht FHR Mov Dilation Station Effacement Hx Notes Visit Note 04/16/25 -?-?-?-?-?-?-?-?-?-?-?-?- 15w 0d 98.089 kg 124/83 absent unknown 15 A 142 -?-?-?-?-?-?-?-?-?-?-?-?- B active 24-year-old g ravida 1 para 0 for OB initial. Patient has a last period January 08, 2025. Estimated due date October 10, 2025. Patient had gone to [place] for vacation last week and was seen in the ER there. Ultrasound done and she has a twin gestation at 14 weeks. And she was given progesterone x 7 days which she completed. She has some spotting now but no cramps. She denies any existing medical problems. She has a previous history she drinks occasionally but none with the . And she had a septorhinoplasty.. 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 Winnie RENDON appointment at [facility]. OB panel, NIPT and carrier screen today. I ordered Gummies for her and I started Diclegis to take twice a day. Discussed comfort measures for nausea and vomiting I discussed ER precautions and danger signs and symptoms and to return in 2 weeks with OB. 05/21/25 -?-?-?-?-?-?-?-?-?-?-?-?- 20w 0d 104.099 kg 133/87 absent unknown A 150 -?-?-?-?-?-?-?-?-?-?-?-?- B 135 active at 19w0d with twin gestation; NIPT negative for SMA, CF, T2//13; OB labs normal; both FHRs detected; pt experiencing nausea with PNVs, no cramping/spotting. Plan: Conf irm correct NIPT for twins via [facility], repeat if needed; f/u at [place] ?[facility] Monday for anatomy scan; switch to gummy PNVs; RTC in 2w; call pt with lab update. 06/10/25 -?-?-?-?-?--?-?-?-?-?-?-?- 22w 6d 105.914 kg 125/82 absent unknown A 145 -?-?-?-?-?-?-?-?-?-?-?-?- B 155 - Lynne Santillan is a female presenting for an ultrasound examination of her twin . - The ultrasound revealed: - Twin A: Positioned showing its butto cks - Twin B: Both heads and the dividing membrane visible - Patient expressed interest in obtaining side view images of the f etuses Plan - Follow up for next ultrasound appointm ent - Attend scheduled MFM (Maternal- M edicine) appointment for high-resolution scan 07/02/25 -?-?-?-?-?-?-?-?-?-?-?-?- 26w 0d 107.955 kg 122/86 absent unknown A 131 -?-?-?-?-?-?-?-?-?-?-?-?- B 141 active - Azam Santillan is a gravity 1 para 0 patient at 25 weeks and 0 days gestation with dichorionic diamniotic twin here for routine care. - Patient had [facility] ultrasound on 5 showing twin with fetus A (female, cephalic, 830 grams, 80th percentile) and fetus B (male, transverse, 725 grams, 39th percentile) with 13% discordancy. - Both babies demonstrate normal anatomy with normal amniotic fluid levels. - Patient reports no specific complaints or concerns during this visit. - NIPT testing has been completed. - Patient is approaching 26 weeks gestat ion with due date of 10/08 based on updated LMP of 01/04. - Schedule her next appointment in 4 weeks - Perform one-hour glucose test today - Continue MF ultrasounds; her next tennille ointment at [facility] on 07/14 - Plan for weekly visits after 30 weeks - Administer betamethasone shots at 32 w eeks for lung maturation - Conduct anemia check and RPR test betw een 28-30 weeks - Anticipate delivery at 37 weeks or ear lier - Determine route of delivery based on f etal positioning closer to delivery date - Complete HR form for maternity leave, recommended around 28-30 weeks SANA Calculator Estimated Delivery Date Method Current WG Current Estimate 10/08/25 Ultrasound #1 26w 0d Other Estimates 10/15/25 LMP (Uncertain) 25w 0d # 2 Notes Visit Date: 07/02/25 Last Updated by: Angel Schuler MD - Date: 06/23/2025 - [facility] ultrasound: Twin , dichorionic diamniotic, 2nd trimester at 25 weeks 0 days gestation - Fetus A: 830 grams (1 lb 13 oz), 80th percentile, female, cephalic presentation, normal anatomy, normal amniotic fluid - Fetus B: 725 grams (1 lb 10 oz), 39th percentile, male, transverse presentation with head to maternal right, normal anatomy, normal amniotic fluid - Growth discordancy: 13% - Cervix: long and closed on transabdominal ultrasound - NIPT test: completed (results not specified) Visit Date: 05/21/25 Last Updated by: Angel Schuler MD - NIPT ([facility]): - SMA: Negative - Cystic fibrosis: Negative - Trisomy 21, 18, 13: Negative - sex: Male (potentially unreliable due to twin gestation) - Initial OB panel ([facility]): - Hepatitis B: Negative - Hepatitis C: Negative - HIV: Negative - Gonorrhea: Negative - Chlamydia: Negative - Trichomonas: Negative - Hemoglobin: 13.2 g/dL - Urinalysis: Within normal limits - Ultrasound: - Twin gestation confirmed - heartbeats visualized for both twins - Different heart rates observed for each twin Visit Date: 04/16/25 Last Updated by: Randi Painting CNM 24 yo . IUP 14 week,twins. LMP 01/08/25. EDC: 10/10/25 Office Procedures OBC Clinic LOC & Office Proc's Nursing/Assessment Patient Status: Established Patient OB Clinic Nursing Assessment: Medication Reconciliation, Update PMH in EMR and Vital Signs OB Clinic Coordination of Care: Complex Care and Chronic Disease 1-5, Education Complex Pt/Fam, Consent,records obtained, informed consent and Staff clarify orders Special Needs: Heart tones Established Patient Charge Established Patient Point Assignment: 120 Established Patient Point Charge: EP Level 4 (120-155) Assessment & Plan Diagnosis / Problem List (1) Encounter for supervision of high risk in second trimester, antepartum: Status: Acute (2) Dichorionic diamniotic twin gestation: Status: Acute Plan Problem List - Twin , dichorionic diamniotic - Gestational age 25 weeks 0 days - growth discordance Assessment at 25 weeks 0 days with dichorionic diamniotic twin . [facility] ultrasound on 06/23/2025 showed Fetus A (female, cephalic) at 830 grams (80th percentile) and Fetus B (male, transverse) at 725 grams (39th percentile) with 13% discordancy. Both fetuses have normal anatomy and amniotic fluid. Cervix is long and closed on transabdominal ultrasound. NIPD test completed. Current gestational age is 26 weeks 0 days. heart rates: Baby A 131 bpm, Baby B 141 bpm. Due date is 10/08, with LMP updated to 01/04. Patient is a candidate for vaginal delivery if first baby remains vertex. Plan - Schedule her next appointment in 4 weeks - Perform one-hour glucose test today - Continue MF ultrasounds; her next appointment at [facility] [place] [facility] on 07/14 - Plan for weekly visits after 30 weeks - Administer betamethasone shots at 32 weeks for lung maturation - Conduct anemia check and RPR test between 28-30 weeks - Anticipate delivery at 37 weeks or earlier - Determine route of delivery based on positioning closer to delivery date - Complete HR form for maternity leave, recommended around 28-30 weeks 1. Progress Reviewed gestational age at 25 weeks 6 days (dichorionic diamniotic twin ), growth with Fetus A at 830 grams (80th percentile) and Fetus B at 725 grams (39th percentile) with 13% discordancy, and heart rates of 131 bpm for Baby A and 141 bpm for Baby B. She planned frequent visits (weekly after 30 weeks). 2. Instructed patient to monitor movements and report decreases immediately. 3. Testing Counseled on routine third-trimester labs including glucose test today, anemia check and RPR test at 28-30 weeks per guidelines. Discussed ultrasound monitoring with her next growth scan scheduled at [facility] on 07/14. 4. Preeclampsia Precaution Educated on preeclampsia signs: severe headache, vision changes, right upper quadrant pain, sudden swelling. Advised urgent reporting of symptoms and discussed blood pressure monitoring if she is high risk. 5. Labor Precautions Reviewed labor signs and advised work leave around 28-30 weeks to avoid labor. Steroid shots (betamethasone) planned at 32 weeks for lung maturation. Instructed her to seek immediate care for labor symptoms. 6. Lifestyle and Delivery Preparation Reinforced vitamins, nutrition, and safe activity. Discussed delivery planning with vaginal delivery possible if first baby remains vertex, with delivery anticipated around 37 weeks or earlier, and route of delivery to be determined based on positions. 7. Psychosocial Support Assessed her emotional well-being and offered resources for mental health or parenting support.
== END 2025-07-02 09:07 | disposition home or self-care (01) ==
LOC: HODSOBC 08:28
PROVIDERS: Supervising Provider Obstetrics & Gynecology; Visit Provider Obstetrics & Gynecology
DX: O09.892 Supervision of other high risk pregnancies, second trimester (principal); O30.042 Twin pregnancy, dichorionic/diamniotic, second trimester; O32.2XX2 Maternal care for transverse and oblique lie, fetus 2; Z3A.26 26 weeks gestation of pregnancy
CPT/HCPCS: 99214; G0463

== ENCOUNTER → 2025-07-09 | Outpatient (CLI) | payer OTHER, SELFPAY ==
[2025-07-09 09:59] LABS: Glucose,1 Hour PP 50gm Dose 228 mg/dL (80-140)
== END | disposition home or self-care (01) ==
LOC: COPL 07:25
PROVIDERS: PCP Obstetrics & Gynecology; Referring Provider Obstetrics & Gynecology; Visit Provider Obstetrics & Gynecology
DX: O99.810 Abnormal glucose complicating pregnancy (principal)
CPT/HCPCS: 36415; 82950

== ENCOUNTER 2025-07-30 08:30 | Outpatient (AMB) | payer OTHER, SELFPAY ==
[2025-07-30 08:45] VITALS: BP 125/83; PULSE 96; RESP 18; TEMP 36.7; O2SAT 97; BMI 36.2
--- NOTE | 2025-07-30 08:45 | OBCLNT_ITS ---
Vital Signs 07/30/25 08:45 Height 1.73 m Height Method Stated Weight 108.409 kg Weight Measurement Method Standing Scale BMI 36.2 BP 125/83 Blood Pressure Source Automatic Cuff Blood Pressure Location Right Upper Arm Position Sitting Respiration 18 Pulse 96 Pulse Source Monitor Temp 98.0 F Temp Source Temporal Artery Scan Pulse Oximetry (%) 97 Oxygen Delivery Method Room Air Allergies/Home Meds Allergies & Medications Allergies No Known Allergies Allergy (Verified 07/30/25 08:45) Medication Reconciliation aspirin 81 mg tablet 81 mg PO QDAY 07/02/25 [History Confirmed 07/30/25] docosahexaenoic acid 200 mg capsule ( DHA) mg PO 07/02/25 [History Confirmed 07/30/25] blood sugar diagnostic (Blood Glucose Test strips) #100 ea 07/11/25 [Rx Confirmed 07/30/25] blood-glucose meter #1 ea 07/11/25 [Rx Confirmed 07/30/25] lancets 21 gauge #100 ea 07/11/25 [Rx Confirmed 07/30/25] metformin 500 mg tablet 500 mg PO QDAY 90 days #90 tabs 07/17/25 [Rx Confirmed 07/30/25] Intake Visit Data Collection New Patient or Established: Established Patient (seen at [facility] within 3 years) Reason for Visit:: C 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 Do You Feel Safe at Home: Yes Authorities Contacted: N/A PCP or OBGYN visit in last 3 months: Yes Date of Last PCP or OBGYN visit: 07/02/25 Hx Now: Yes Are you currently on any form of Control: No Pain Present Currently: Yes Pain Location: Buttock Pain Scale Used: Castillo-Taylor/Numerical Pain scale:: 7 Smoking Status Smoking Status: Never smoker Immunizations Flu Vaccine in the Last 12 Months: Yes Flu Vaccine Exclusion Criteria: Already Received Questionnaires Covid-19 Vaccine Questionnaire Has patient been vacinated for Covid-19 Have you been vacinated for Covid-19: Yes PHQ-9 PHQ-2 Over the last 2 weeks, how often have you been bothered by any of the following problems? 1. Little interest or pleasure in doing things: not at all 2. Feeling down, depressed, or hopeless: not at all Total score: 0 PHQ-9 3. Trouble falling or staying asleep, or sleeping too much: Not at all 4. Feeling tired or having little energy: Not at all 5. Poor appetite or overeating: Not at all 6. Feeling bad about yourself - or that you are a failure or have let yourself or your family down: Not at all 7. Trouble concentrating on things, such as reading the newspaper or watching television: Not at all 8. Moving or speaking so slowly that other people could have noticed? - Or the opposite - being so fidgety or restless that you have been moving around a lot more than usual: not at all 9. Thoughts that you would be better off or of hurting yourself in some way: Not at all Total score: 0 If you checked off any problems, how difficult have these problems made it for you to do your work, take care of things at home, or get along with other people?: not difficult at all Source: Developed by Drs. Collins Asencio, Dottie Whitfield, Basilio Eden and colleagues, with an educational joey from [employer]. Depression screen completed yes Social History Living Situation History Marital Status: Life Partner Lives With: Family Housing: House Tobacco History Smoking Status: Never smoker Second Hand Smoke Exposure: No Alcohol History Alcohol Intake: Never Domestic Abuse History Do You Feel Safe at Home: Yes Care OB Visit Log OB Flowsheet Initial Weight: Not Recorded Date -?-?-?-?-?-?-?-?-?-?-?-?- EGA Weight BP Alb Glu CTX Pres Fundal ht FHR Mov Dilation Station Effacement Hx Notes Visit Note 04/16/25 -?-?-?-?-?-?-?-?-?-?-?-?- 15w 0d 98.089 kg 124/83 absent unknown 15 A 142 -?-?-?-?-?-?-?-?-?-?-?-?- B active 24-year-old g ravida 1 para 0 for OB initial. Patient has a last period January 08, 2025. Estimated due date October 10, 2025. Patient had gone to [place] for vacation last week and was seen in the ER there. Ultrasound done and she has a twin gestation at 14 weeks. And she was given progesterone x 7 days which she completed. She has some spotting now but no cramps. She denies any existing medical problems. She has a previous history she drinks occasionally but none with the . And she had a septorhinoplasty.. 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 Sched roxi MFM appointment at [facility]. OB panel, NIPT and carrier screen today. I ordered Gummies for her and I started Diclegis to take twice a day. Discussed comfort measures for nausea and vomiting I discussed ER precautions and danger signs and symptoms and to return in 2 weeks with OB. 05/02/25 -?-?-?-?-?-?-?-?-?-?-?-?- 17w 2d 100.244 kg 129/81 absent unknown 20 A 135 -?-?-?-?-?-?-?-?-?-?-?-?- B 145 active - Azam Santillan is a patient with dichorionic diamniotic twins presenting for follow-up after experiencing bleeding and clotting. - She reports bleeding and clotting for approximately one month duration. - Following the bleeding episode, she be rohan experiencing some discharge. - She has pictures of the discharge to show the provider. - She visited the emergency room on April 17 at [facility] due to her symptoms. - The ER recommended follow-up with ob xochilt but would not accept her as a patient at that time. - She has been seen by Randi (presumably another provider) once before this visit. - She underwent NIPT testing approximate ly 2 Saturdays prior to this visit through [facility]. - She and her partner do not want to k now the genders of the babies. 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 Plan: Conf irm correct NIPT for twins via [facility], repeat if needed; f/u at [facility] ?s Monday for anatomy scan; switch to gummy PNVs; RTC in 2w; call pt with lab update. 06/06/25 -?-?-?-?--?-?-?-?-?-?-?-?- 22w 2d 105.744 kg 131/84 absent unknown A 145 -?-?-?-?-?-?-?-?-?-?-?-?- B 155 active - Azam Santillan is a female with dichorionic diamniotic twins presenting for routine follow-up after recent ultrasound imaging. - She reports experiencing some sharp pa in, which she attributes to stretching effects related to her . - She mentions her feet were really swol elisa on the day of her recent ultrasound visit. 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 - This is her first ( o ne). - She is currently taking ASA to promote blood flow to the placenta - Continue baby aspirin (blood thinner) to promote blood flow to placenta and support growth - Schedule follow-up appointment in 4 we eks - Continue serial ultrasound monitoring to assess weight discrepancy (currently 3% difference between twins) - Monitor for labor risk given d ichorionic diamniotic twin 06/10/25 -?-?-?-?-?-?-?-?-?-?-?-?- 22w 6d 105.914 kg 125/82 absent unknown A 145 -?-?-?-?-?-?-?-?-?-?-?-?- B 155 - Lynne Santillan is a female presenting for an ultrasound examination of her twin . - The ultrasound revealed: - Twin A: Positioned showing its butto cks - Twin B: Both heads and the dividing membrane visible - Patient expressed interest in obtaining side view images of the f etuses Plan - Follow up for next ultrasound appointm ent - Attend scheduled MFM (Maternal- M edicine) appointment for high-resolution scan 07/02/25 -?-?-?-?-?-?-?-?-?-?-?-?- 26w 0d 107.955 kg 122/86 absent unknown A 131 -?-?-?-?-?-?-?-?-?-?-?-?- B 141 active - Azam Santillan is a gravity 1 para 0 patient at 25 weeks and 0 days gestation with dichorionic diamniotic twin here for routine care. - Patient had MFM ultrasound on 5 showing twin with fetus A (female, cephalic, 830 grams, 80th percentile) and fetus B (male, transverse, 725 grams, 39th percentile) with 13% discordancy. - Both babies demonstrate normal anatomy with normal amniotic fluid levels. - Patient reports no specific complaints or concerns during this visit. - NIPT testing has been completed. - Patient is approaching 26 weeks gestat ion with due date of 10/08 based on updated LMP of 01/04. - Schedule her next appointment in 4 weeks - Perform one-hour glucose test today - Continue MFM ultrasounds; her next tennille ointment at [facility] on 07/14 - Plan for weekly visits after 30 weeks - Administer betamethasone shots at 32 w eeks for lung maturation - Conduct anemia check and RPR test betw een 28-30 weeks - Anticipate delivery at 37 weeks or ear lier - Determine route of delivery based on f etal positioning closer to delivery date - Complete HR form for maternity leave, recommended around 28-30 weeks 07/30/25 -?-?-?-?-?-?-?-?-?-?-?-?- 30w 0d 108.409 kg 125/83 absent unstable A 142 -?-?-?-?-?-?-?-?-?-?-?-?- B 151 active - She wells s been monitoring blood glucose levels at home with finger stick testing. - Initial glucose readings were 127, 1 02, 113, 109 mg/dL - Recent readings show improvement wit h occasional elevations to 150 mg/dL and some higher values of 181 and 161 mg/dL when she first started checking - Numbers are trending downward with d ietary modifications - She reports regulating her diet and wells s identified foods that cause glucose spikes. - She notes glucose typically spikes a fter lunch - She denies any current discomfort that would interfere with work activities. - Continue diet-controlled management for gestational diabetes with finger stick glucose monitoring - Add 15-20 minutes of walking, particul rayna 10-minute walk after lunch to help control postprandial glucose spikes - Complete routine third trimester labor atory testing: CBC and RPR - Monitor positions (currently fet us A breech, fetus B transverse) - if positions hold, section will be needed - Re-evaluate delivery plan at 34 weeks based on positioning - Follow up in 2 weeks - Patient may continue working as [employer]; work restriction forms available upon request - Anticipate delivery around 36 weeks (m id-August) as twins typically deliver 3-4 weeks early [facility]NA Calculator Estimated Delivery Date Method Current Current Estimate 10/08/25 Ultrasound #1 30w 0d Other Estimates 10/15/25 LMP (Uncertain) 29w 0d # 2 Notes Visit Date: 07/30/25 Last Updated by: Angel Schuler MD - Date: 07/22/2025 - [facility] ultrasound at 30 weeks 0 days gestation: Dichorionic diamniotic twin gestation - Fetus A: EFW 1510 grams (82nd percentile), breech presentation - Fetus B: EFW 1401 grams (61st percentile), transverse presentation - Discordancy: 7% Visit Date: 07/02/25 Last Updated by: Angel Schuler MD - Date: 06/23/2025 - [facility] ultrasound: Twin , dichorionic diamniotic, 2nd trimester at 25 weeks 0 days gestation - Fetus A: 830 grams (1 lb 13 oz), 80th percentile, female, cephalic presentation, normal anatomy, normal amniotic fluid - Fetus B: 725 grams (1 lb 10 oz), 39th percentile, male, transverse presentation with head to maternal right, normal anatomy, normal amniotic fluid - Growth discordancy: 13% - Cervix: long and closed on transabdominal ultrasound - NIPT test: completed (results not specified) Visit Date: 06/06/25 Last Updated by: Angel Schuler MD Laboratory, Imaging, and Diagnostic Test Results - Ultrasound (performed in [place]): - Dichorionic diamniotic twin - Baby A: 345 grams (12 ounces), cephalic presentation, normal anatomy survey, female gender, 94th percentile for growth - Baby B: 337 grams, normal anatomy survey, 91st percentile for growth - Weight discrepancy: 3% between twins - Transvaginal cervical length: 4.5 cm - heart rates: Baby A 133 bpm, Baby B 153 bpm Visit Date: 05/21/25 Last Updated by: Angel Schuler MD - NIPT ([facility]): - SMA: Negative - Cystic fibrosis: Negative - Trisomy 21, 18, 13: Negative - sex: Male (potentially unreliable due to twin gestation) - Initial OB panel ([facility]): - Hepatitis B: Negative - Hepatitis C: Negative - HIV: Negative - Gonorrhea: Negative - Chlamydia: Negative - Trichomonas: Negative - Hemoglobin: 13.2 g/dL - Urinalysis: Within normal limits - Ultrasound: - Twin gestation confirmed - heartbeats visualized for both twins - Different heart rates observed for each twin Visit Date: 04/16/25 Last Updated by: SHERLEY Parks 24 yo . IUP 14 week,twins. LMP 01/08/25. EDC: 10/10/25 Office Procedures [facility] Clinic LOC & Office Proc's Nursing/Assessment Patient Status: Established Patient OB Clinic Nursing Assessment: Medication Reconciliation, Update PMH in EMR and Vital Signs OB Clinic Coordination of Care: Complex Care and Chronic Disease 1-5, Education Complex Pt/Fam, Consent,records obtained, informed consent, Lab and Imaging orders, Results/Orders obtained and Staff clarify orders Special Needs: Heart tones Established Patient Charge Established Patient Point Assignment: 140 Established Patient Point Charge: EP Level 4 (120-155) Assessment & Plan Diagnosis / Problem List (1) Gestational diabetes mellitus: Status: Acute (2) Dichorionic diamniotic twin gestation: Status: Acute Plan Problem List - Dichorionic diamniotic twin gestation - Gestational diabetes mellitus - Malpresentation of fetus Assessment 30-week dichorionic diamniotic twin gestation with gestational diabetes mellitus, diet-controlled. Recent [facility] ultrasound on 07-22-25 shows fetus A with estimated weight of 1510 grams (82nd percentile) in breech presentation and fetus B with estimated weight of 1401 grams (61st percentile) in transverse lie, with 7% discordancy between twins. Blood glucose monitoring shows postprandial values ranging from 102-181 mg/dL with recent improvement following dietary modifications. heart rates are reassuring at 142 bpm for fetus A and 151 bpm for fetus B. Patient is due for routine third-trimester laboratory studies including CBC and RPR. Plan - Continue diet-controlled management for gestational diabetes with finger stick glucose monitoring - Add 15-20 minutes of walking, particularly 10-minute walk after lunch to help control postprandial glucose spikes - Complete routine third trimester laboratory testing: CBC and RPR - Monitor positions (currently fetus A breech, fetus B transverse) - if positions hold, section will be needed - Re-evaluate delivery plan at 34 weeks based on positioning - Follow up in 2 weeks - Patient may continue working as tolerated; work restriction forms available upon request - Anticipate delivery around 36 weeks (mid-August) as twins typically deliver 3-4 weeks early 1. Progress Reviewed gestational age (30 weeks 0 days), growth (Fetus A: 1510 grams, 82nd percentile; Fetus B: 1401 grams, 61st percentile with 7% discordancy), and heart rate (Baby A: 142 bpm, Baby B: 151 bpm). Planned frequent visits (every 2 weeks until 36 weeks, then weekly). 2. Instructed patient to monitor movements and report decreases immediately. 3. Testing Counseled on routine third-trimester labs per guidelines (CBC and RPR ordered). Discussed potential need for ultrasound or monitoring based on risk factors. 4. Preeclampsia Precaution Educated on preeclampsia signs: severe headache, vision changes, right upper quadrant pain, sudden swelling. Advised urgent reporting of symptoms and discussed blood pressure monitoring if she is high risk. 5. Labor Precautions Reviewed labor signs: regular contractions, pelvic pressure, back pain, bleeding, or fluid leakage. Instructed to seek immediate care for these symptoms. Counseled that twins tend to deliver 3-4 weeks early, aiming for 36 weeks delivery. 6. Lifestyle and Delivery Preparation Reinforced vitamins, nutrition, and safe activity. Discussed gestational diabetes management with diet control and 15-20 minutes walking, especially post-lunch. Discussed plan (likely due to positioning - Fetus A breech, Fetus B transverse), pain management, and . Advised on labor preparation (e.g., hospital bag) and expectations. 7. Psychosocial Support Assessed her emotional well-being and offered resources for mental health or parenting support. Discussed work accommodations and disability forms availability when needed.
== END 2025-07-30 09:22 | disposition home or self-care (01) ==
LOC: HODSOBC 08:30
PROVIDERS: Supervising Provider Obstetrics & Gynecology; Visit Provider Obstetrics & Gynecology
DX: O09.893 Supervision of other high risk pregnancies, third trimester (principal); O24.415 Gestational diabetes mellitus in pregnancy, controlled by oral hypoglycemic drugs; O30.043 Twin pregnancy, dichorionic/diamniotic, third trimester; O32.1XX1 Maternal care for breech presentation, fetus 1; O32.2XX2 Maternal care for transverse and oblique lie, fetus 2; Z3A.30 30 weeks gestation of pregnancy
CPT/HCPCS: 99214; G0463

== ENCOUNTER → 2025-08-08 | Outpatient (CLI) | payer OTHER, SELFPAY ==
[2025-08-08 13:21] LABS: Basophils # (Auto) 0.0 Thou/mm3 (0.0-0.2); Basophils % (Auto) 0 % (0-2.5); Eosinophils # (Auto) 0.1 Thou/mm3 (0.0-0.5); Eosinophils % (Auto) 1 % (0-10); Hematocrit 36.0 % (36.0-46.0); Hemoglobin 12.5 g/dL (12.0-16.0); Immature Granulocytes Auto 0.03 Thou/mm3 (0.00-0.00); Lymphocytes # (Auto) 1.5 Thou/mm3 (1.0-4.8); Lymphocytes % (Auto) 21 % (10-50); Mean Corpuscular HGB Conc 34.7 g/dl (31.0-37.0); Mean Corpuscular Hemoglobin 32.2 pg (25.0-35.0); Mean Corpuscular Volume 93 fL (80-100); Monocytes # (Auto) 0.6 Thou/mm3 (0.0-0.8); Monocytes % (Auto) 9 % (0-12); Neutrophils # (Auto) 4.9 Thou/mm3 (1.8-7.7); Neutrophils % (Auto) 68 % (37-80); Nucleated Red Blood Cell # 0.00 Thou/mm3 (0.00-0.00); Nucleated Red Blood Cell % 0 /100 WBC (0); Platelet Count 275 Thou/mm3 (140-440); RDW Standard Deviation 45.6 fL (36.4-46.3); Red Blood Count 3.88 Miln/mm3 (4.00-5.20); White Blood Count 7.1 Thou/mm3 (3.6-11.0)
[2025-08-08 14:28] LABS: Syphilis Nonreactive (Nonreactive)
== END | disposition home or self-care (01) ==
LOC: SLAB 12:00
PROVIDERS: PCP Obstetrics & Gynecology; Referring Provider Obstetrics & Gynecology; Visit Provider Obstetrics & Gynecology
DX: O30.049 Twin pregnancy, dichorionic/diamniotic, unspecified trimester (principal)
CPT/HCPCS: 36415; 85025; 86780

== ENCOUNTER 2025-08-15 08:28 | Outpatient (AMB) | payer OTHER, SELFPAY ==
--- NOTE | 2025-08-15 08:43 | OBCLNT_ITS ---
Vital Signs 08/15/25 08:45 Height 1.73 m Height Method Stated Weight 110.28 kg Weight Measurement Method Standing Scale BMI 36.8 BP 124/86 H Blood Pressure Source Automatic Cuff Blood Pressure Location Right Upper Arm Position Sitting Respiration 18 Pulse 77 Pulse Source Monitor Temp 97.7 F Temp Source Temporal Artery Scan Pulse Oximetry (%) 98 Oxygen Delivery Method Room Air Allergies/Home Meds Allergies & Medications Allergies No Known Allergies Allergy (Verified 09/08/25 13:30) Medication Reconciliation aspirin 81 mg tablet 81 mg PO QDAY 07/02/25 [History Confirmed 09/05/25] docosahexaenoic acid 200 mg capsule ( DHA) 200 mg PO QDAY 07/02/25 [History Confirmed 09/05/25] blood-glucose meter #1 ea 07/11/25 [Rx Confirmed 09/05/25] lancets 21 gauge #100 ea 07/11/25 [Rx Confirmed 09/05/25] blood sugar diagnostic (Blood Glucose Test strips) #100 ea 09/02/25 [Rx Confirmed 09/05/25] labetalol 100 mg tablet 100 mg PO Q12H #20 tabs 09/03/25 [Rx Confirmed 09/05/25] potassium chloride 20 mEq oral packet 20 meq PO QDAY #30 ea 09/03/25 [Rx Confirmed 09/05/25] docusate sodium 100 mg capsule (Stool Softener) 100 mg PO QDAY 30 days #30 caps 09/13/25 [Rx] ibuprofen 600 mg tablet 600 mg PO Q6H PRN fever or pain 10 days #40 tabs 09/13/25 [Rx] Immunizations Immunizations Flu Vaccine in the Last 12 Months: Yes Flu Vaccine Exclusion Criteria: Already Received Care OB Visit Log OB Flowsheet Initial Weight: Not Recorded Date -?-?-?-?-?-?-?-?-?-?-?-?- EGA Weight BP Alb Glu CTX Pres Fundal ht FHR Mov Dilation Station Effacement Hx Notes Visit Note 04/16/25 -?-?-?-?-?-?-?-?-?-?-?-?- 15w 0d 98.089 kg 124/83 absent unknown 15 A 142 -?-?-?-?-?-?-?-?-?-?-?-?- B active 24-year-old g ravida 1 para 0 for OB initial. Patient has a last period January 08, 2025. Estimated due date October 10, 2025. Patient had gone to [place] for vacation last week and was seen in the ER there. Ultrasound done and she has a twin gestation at 14 weeks. And she was given progesterone x 7 days which she completed. She has some spotting now but no cramps. She denies any existing medical problems. She has a previous history she drinks occasionally but none with the . And she had a septorhinoplasty.. 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 Sched roxi RENDON appointment at [facility]. OB panel, NIPT and carrier screen today. I ordered Gummies for her and I started Diclegis to take twice a day. Discussed comfort measures for nausea and vomiting I discussed ER precautions and danger signs and symptoms and to return in 2 weeks with OB. 05/02/25 -?-?-?-?-?-?-?-?-?--?-?-?- 17w 2d 100.244 kg 129/81 absent unknown 20 A 135 -?-?-?-?-?-?-?-?-?-?-?-?- B 145 active - Azam Santillan is a patient with dichorionic diamniotic twins presenting for follow-up after experiencing bleeding and clotting. - She reports bleeding and clotting for approximately one month duration. - Following the bleeding episode, she be rohan experiencing some discharge. - She has pictures of the discharge to show the provider. - She visited the emergency room on April 17 at [facility] [place] due to her symptoms. - The ER recommended follow-up with ob stetrics but would not accept her as a patient at that time. - She has been seen by Randi (presumably another provider) once before this visit. - She underwent NIPT testing approximate ly 2 Saturdays prior to this visit through [facility]. - She and her partner do not want to k now the genders of the babies. 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 Plan: Con firm correct NIPT for twins via [facility], repeat if needed; f/u at [facility] ?[facility] Monday for anatomy scan; switch to gummy PNVs; RTC in 2w; call pt with lab update. 06/06/25 -?-?-?-?-?-?-?-?-?-?-?-?- 22w 2d 105.744 kg 131/84 absent unknown A 145 -?-?-?-?-?-?-?-?-?-?-?-?- B 155 active - Azam Santillan is a female with dichorionic diamniotic twins presenting for routine follow-up after recent ultrasound imaging. - She reports experiencing some sharp pa in, which she attributes to stretching effects related to her . - She mentions her feet were really swol elisa on the day of her recent ultrasound visit. 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 - This is her first ( o ne). - She is currently taking ASA to promote blood flow to the placenta - Continue baby aspirin (blood thinner) to promote blood flow to placenta and support growth - Schedule follow-up appointment in 4 we eks - Continue serial ultrasound monitoring to assess weight discrepancy (currently 3% difference between twins) - Monitor for labor risk given d ichorionic diamniotic twin 06/10/25 -?-?-?-?-?-?-?-?-?-?-?-?- 22w 6d 105.914 kg 125/82 absent unknown A 145 -?-?-?-?-?-?-?-?-?-?-?-?- B 155 - Lynne Santillan is a female presenting for an ultrasound examination of her twin . - The ultrasound revealed: - Twin A: Positioned showing its butto cks - Twin B: Both heads and the dividing membrane visible - Patient expressed interest in obtaining side view images of the f etuses Plan - Follow up for next ultrasound appointm ent - Attend scheduled MFM (Maternal- M edicine) appointment for high-resolution scan 07/02/25 -?-?-?-?-?-?-?-?-?-?-?-?- 26w 0d 107.955 kg 122/86 absent unknown A 131 -?-?-?-?-?-?-?-?-?-?-?-?- B 141 active - Azam Santillan is a gravity 1 para 0 patient at 25 weeks and 0 days gestation with dichorionic diamniotic twin here for routine care. - Patient had MFM ultrasound on 5 showing twin with fetus A (female, cephalic, 830 grams, 80th percentile) and fetus B (male, transverse, 725 grams, 39th percentile) with 13% discordancy. - Both babies demonstrate normal anatomy with normal amniotic fluid levels. - Patient reports no specific complaints or concerns during this visit. - NIPT testing has been completed. - Patient is approaching 26 weeks gestat ion with due date of 10/08 based on updated LMP of 01/04. - Schedule her next appointment in 4 weeks - Perform one-hour glucose test today - Continue MFM ultrasounds; her next tennille ointment at [facility] on 07/14 - Plan for weekly visits after 30 weeks - Administer betamethasone shots at 32 w eeks for lung maturation - Conduct anemia check and RPR test betw een 28-30 weeks - Anticipate delivery at 37 weeks or ear lier - Determine route of delivery based on f etal positioning closer to delivery date - Complete HR form for maternity leave, recommended around 28-30 weeks 07/30/25 -?-?-?-?-?-?-?-?-?-?-?-?- 30w 0d 108.409 kg 125/83 absent unstable A 142 -?-?-?-?-?-?-?-?-?-?-?-?- B 151 active - She wells s been monitoring blood glucose levels at home with finger stick testing. - Initial glucose readings were 127, 1 02, 113, 109 mg/dL - Recent readings show improvement wit h occasional elevations to 150 mg/dL and some higher values of 181 and 161 mg/dL when she first started checking - Numbers are trending downward with d ietary modifications - She reports regulating her diet and wells s identified foods that cause glucose spikes. - She notes glucose typically spikes a fter lunch - She denies any current discomfort that would interfere with work activities. - Continue diet-controlled management for gestational diabetes with finger stick glucose monitoring - Add 15-20 minutes of walking, particul rayna 10-minute walk after lunch to help control postprandial glucose spikes - Complete routine third trimester labor atory testing: CBC and RPR - Monitor positions (currently fet us A breech, fetus B transverse) - if positions hold, section will be needed - Re-evaluate delivery plan at 34 weeks based on positioning - Follow up in 2 weeks - Patient may continue working as [employer]; work restriction forms available upon request - Anticipate delivery around 36 weeks (m id-August) as twins typically deliver 3-4 weeks early 08/15/25 -?-?-?-?-?-?-?-?-?-?-?-?- 32w 2d 110.28 kg 124/86 absent unknown A -?-?-?-?-?-?-?-?-?-?-?-?- B active - Lynne longoria is a 1 female at 32 weeks and 2 days gestation with dichorionic twins and gestational diabetes mellitus (diet- controlled) presenting for routine care. - Baby A remains in breech presentation and Baby B remains in transverse presentation, unchanged from prior visits. - Patient reports both babies are active with differential activity patterns. - Baby B (male) is less active during the day but more active at night. - Baby A (female) is more active than Baby B overall. - Patient continues to work and reports being able to maintain employment at 32 weeks gestation with twins. - She has an upcoming ultrasound schedul ed for this week for growth assessment. - Patient requests work documentation as her last day of work will be Monday of next week (before ). - Anesthesia consultation for monitoring - insurance authorization pending, will call patient when approved - Weekly surveillance with 20-valarie te tracings on both babies for well-being - Ultrasound scheduled for this coming w [place] to assess growth - Work release letter to be provided - l ast work day Monday next week before - Follow up appointment in 2 weeks 08/29/25 -?-?-?-?-?-?-?-?-?-?-?-?- 34w 2d 112.037 kg 129/87 absent unstable A 145 -?-?-?-?-?-?-?-?-?-?-?-?- B 160 active - Azam Santillan is presenting for routine care at 34 weeks and 2 days gestation with dichorionic diamniotic twin . - Patient reports both babies are active with increased movement at night. - She stopped working last Monday and is no longer planning to continue working. - Patient denies any acute concerns or symptoms during this visit. - Schedule section at 38 weeks due to breech-breech presentation of both twins - Block delivery date and contact labor and delivery unit - Proceed to 4th floor for NST-BPP ultra sound on both babies for heart rate monitoring - Establish bi-weekly NST-BPP monitoring schedule - Follow up appointment in one week 09/05/25 -?-?-?-?-?-?-?-?-?-?-?-?- 35w 2d 112.207 kg 151/94 absent unstable A 130 -?-?-?-?-?-?-?-?-?-?-?-?- B 122 active - Azam Santillan is a patient with diamniotic-dichorionic twin at 35 weeks and 2 days gestation, here for routine care and group B strep testing. - Patient was last seen one week ago and reports feeling good overall. - She denies contractions and reports izabela th babies are active. - Patient reports chronic nasal congesti on, stating I'm always congested. - She picked up prescribed labetalol fro m the pharmacy yesterday but has not started taking it due to pharmacist concerns about safety during . - Patient was advised by pharmacist no t to take medication until discussing with physician. - She has only taken labetalol doses r eceived during previous hospitalization. - Patient was prescribed potassium suppl ementation by another provider. - She reports that [facility] called to inform her that something was approved. - Patient attempted to make an appointme nt but was told that labor and delivery did not have any paperwork from the physician's office. - She denies any leaking of fluid. - Start labetalol as prescribed for blood pressure management during - Schedule delivery at 37 week s (moved up from 38 weeks due to hypertension requiring labetalol) - Obtain lab work today to recheck potas sium and other electrolytes - Group B strep testing performed - Provide patient with printout of previ pelonsly submitted paperwork for L&D SANA Calculator Estimated Delivery Date Method Current WG Current Estimate 10/08/25 Ultrasound #1 37w 1d Other Estimates 10/15/25 LMP (Uncertain) 36w 1d # 2 Notes Visit Date: 08/15/25 Last Updated by: Angel Schuler MD - Ultrasound: Twin gestation at 32 weeks 2 days, Baby A breech presentation, Baby B transverse presentation, heads in contact with each other Visit Date: 07/30/25 Last Updated by: Angel Schuler MD - Date: 07/22/2025 - [facility] ultrasound at 30 weeks 0 days gestation: Dichorionic diamniotic twin gestation - Fetus A: EFW 1510 grams (82nd percentile), breech presentation - Fetus B: EFW 1401 grams (61st percentile), transverse presentation - Discordancy: 7% Visit Date: 07/02/25 Last Updated by: Angel Schuler MD - Date: 06/23/2025 - [facility] ultrasound: Twin , dichorionic diamniotic, 2nd trimester at 25 weeks 0 days gestation - Fetus A: 830 grams (1 lb 13 oz), 80th percentile, female, cephalic presentation, normal anatomy, normal amniotic fluid - Fetus B: 725 grams (1 lb 10 oz), 39th percentile, male, transverse presentation with head to maternal right, normal anatomy, normal amniotic fluid - Growth discordancy: 13% - Cervix: long and closed on transabdominal ultrasound - NIPT test: completed (results not specified) Visit Date: 06/06/25 Last Updated by: Angel Schuler MD Laboratory, Imaging, and Diagnostic Test Results - Ultrasound (performed in [place]): - Dichorionic diamniotic twin - Baby A: 345 grams (12 ounces), cephalic presentation, normal anatomy survey, female gender, 94th percentile for growth - Baby B: 337 grams, normal anatomy survey, 91st percentile for growth - Weight discrepancy: 3% between twins - Transvaginal cervical length: 4.5 cm - heart rates: Baby A 133 bpm, Baby B 153 bpm Visit Date: 05/21/25 Last Updated by: Angel Schuler MD - NIPT ([facility] [facility] [employer]): - SMA: Negative - Cystic fibrosis: Negative - Trisomy 21, 18, 13: Negative - sex: Male (potentially unreliable due to twin gestation) - Initial OB panel ([facility]): - Hepatitis B: Negative - Hepatitis C: Negative - HIV: Negative - Gonorrhea: Negative - Chlamydia: Negative - Trichomonas: Negative - Hemoglobin: 13.2 g/dL - Urinalysis: Within normal limits - Ultrasound: - Twin gestation confirmed - heartbeats visualized for both twins - Different heart rates observed for each twin Visit Date: 04/16/25 Last Updated by: Randi Painting CNM 24 yo . IUP 14 week,twins. LMP 01/08/25. EDC: 10/10/25 Office Procedures [facility] LOC & Office Proc's Nursing/Assessment Patient Status: Established Patient OB Clinic Nursing Assessment: Medication Reconciliation, Update PMH in EMR and Vital Signs OB Clinic Coordination of Care: Complex Care and Chronic Disease 1-5, Education Complex Pt/Fam, Consent,records obtained, informed consent, Lab and Imaging orders, Results/Orders obtained and Staff clarify orders Special Needs: Heart tones Established Patient Charge Established Patient Point Assignment: 140 Established Patient Point Charge: EP Level 4 (120-155) Assessment & Plan Diagnosis / Problem List (1) Dichorionic diamniotic twin gestation: Status: Acute Qualifiers: Trimester: third trimester Qualified Code(s): O30.043 - Twin , dichorionic/diamniotic, third trimester Plan Problem List - Twin - Gestational diabetes mellitus - Breech presentation - Transverse lie Assessment 32-week and 2-day twin gestation with gestational diabetes mellitus (diet- controlled) in a 1 patient. Baby A presents in breech position and Baby B in transverse lie, with positioning unchanged from previous visits. Both fetuses demonstrate appropriate activity patterns with noted circadian rhythm variations. Patient reports differential movement patterns between the twins, with one being more active during daytime hours and the other more active at night. Plan - Anesthesia consultation for monitoring - insurance authorization pending, will call patient when approved - Weekly surveillance with 20-minute tracings on both babies for well-being - Ultrasound scheduled for this coming week to assess growth - Work release letter to be provided - last work day Monday next week before - Follow up appointment in 2 weeks 1. Progress Reviewed gestational age (32 weeks 2 days), growth, and heart rate. Patient is 1 with dichorionic twins, GDM diet-controlled. Baby A is breech, Baby B is transverse. Both babies are active with different activity patterns. Planned frequent visits (every 2 weeks until 36 weeks, then weekly). 2. Instructed patient to monitor movements and report decreases immediately. 3. Testing Counseled on routine third-trimester labs per guidelines. Discussed potential need for ultrasound or monitoring based on risk factors. Weekly surveillance monitoring planned with anesthesia department for well-being assessment. 4. Preeclampsia Precaution Educated on preeclampsia signs: severe headache, vision changes, right upper quadrant pain, sudden swelling. Advised urgent reporting of symptoms and discussed blood pressure monitoring if high risk. 5. Labor Precautions Reviewed labor signs: regular contractions, pelvic pressure, back pain, bleeding, or fluid leakage. Instructed to seek immediate care for these symptoms. 6. Lifestyle and Delivery Preparation Reinforced vitamins, nutrition, and safe activity. Patient currently working and able to continue until next week (before ). Discussed plan, pain management, and . Advised on labor preparation (e.g., hospital bag) and expectations. 7. Psychosocial Support Assessed emotional well-being and offered resources for mental health or parenting support.
[2025-08-15 08:45] VITALS: BP 124/86; PULSE 77; RESP 18; TEMP 36.5; O2SAT 98; BMI 36.8
== END 2025-08-15 08:54 | disposition home or self-care (01) ==
PROVIDERS: Supervising Provider Obstetrics & Gynecology; Visit Provider Obstetrics & Gynecology
DX: O09.893 Supervision of other high risk pregnancies, third trimester (principal); O30.043 Twin pregnancy, dichorionic/diamniotic, third trimester; O24.410 Gestational diabetes mellitus in pregnancy, diet controlled; O32.1XX1 Maternal care for breech presentation, fetus 1; O32.2XX2 Maternal care for transverse and oblique lie, fetus 2; Z3A.32 32 weeks gestation of pregnancy
CPT/HCPCS: 99214; G0463

== ENCOUNTER 2025-08-29 08:27 | Outpatient (AMB) | payer OTHER, SELFPAY ==
[2025-08-29 08:47] VITALS: BP 129/87; PULSE 86; RESP 18; TEMP 36.2; O2SAT 98; BMI 37.4
--- NOTE | 2025-08-29 08:47 | OBCLNT_ITS ---
Vital Signs 08/29/25 08:47 Height 1.73 m Height Method Stated Weight 112.037 kg Weight Measurement Method Standing Scale BMI 37.4 BP 129/87 H Blood Pressure Source Automatic Cuff Blood Pressure Location Left Upper Arm Position Sitting Respiration 18 Pulse 86 Pulse Source Monitor Temp 97.2 F Temp Source Oral Pulse Oximetry (%) 98 Oxygen Delivery Method Room Air Allergies/Home Meds Allergies & Medications Allergies No Known Allergies Allergy (Verified 08/30/25 14:36) Medication Reconciliation aspirin 81 mg tablet 81 mg PO QDAY 07/02/25 [History Confirmed 08/30/25] docosahexaenoic acid 200 mg capsule ( DHA) 200 mg PO QDAY 07/02/25 [History Confirmed 08/30/25] blood sugar diagnostic (Blood Glucose Test strips) #100 ea 07/11/25 [Rx Confirmed 08/29/25] blood-glucose meter #1 ea 07/11/25 [Rx Confirmed 08/29/25] lancets 21 gauge #100 ea 07/11/25 [Rx Confirmed 08/29/25] Immunizations Immunizations Flu Vaccine in the Last 12 Months: No Flu Vaccine Exclusion Criteria: No Exclusion Criteria Care OB Visit Log OB Flowsheet Initial Weight: Not Recorded Date -?-?-?-?-?-?-?-?-?-?-?-?- EGA Weight BP Alb Glu CTX Pres Fundal ht FHR Mov Dilation Station Effacement Hx Notes Visit Note 04/16/25 -?-?-?-?-?-?-?-?-?-?-?-?- 15w 0d 98.089 kg 124/83 absent unknown 15 A 142 -?-?-?--?-?-?-?-?-?-?-?-?- B active 24-year-old g ravida 1 para 0 for OB initial. Patient has a last period January 08, 2025. Estimated due date October 10, 2025. Patient had gone to [place] for vacation last week and was seen in the ER there. Ultrasound done and she has a twin gestation at 14 weeks. And she was given progesterone x 7 days which she completed. She has some spotting now but no cramps. She denies any existing medical problems. She has a previous history she drinks occasionally but none with the . And she had a septorhinoplasty.. 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 Sched roxi DAVIESM appointment at [facility]. OB panel, NIPT and carrier screen today. I ordered Gummies for her and I started Diclegis to take twice a day. Discussed comfort measures for nausea and vomiting I discussed ER precautions and danger signs and symptoms and to return in 2 weeks with OB. 05/02/25 -?-?-?-?-?-?-?-?-?-?-?-?- 17w 2d 100.244 kg 129/81 absent unknown 20 A 135 -?-?-?-?-?-?-?-?-?-?-?-?- B 145 active - Azam Santillan is a patient with dichorionic diamniotic twins presenting for follow-up after experiencing bleeding and clotting. - She reports bleeding and clotting for approximately one month duration. - Following the bleeding episode, she be rohan experiencing some discharge. - She has pictures of the discharge to show the provider. - She visited the emergency room on April 17 at [facility] due to her symptoms. - The ER recommended follow-up with ob xochilt but would not accept her as a patient at that time. - She has been seen by Randi (presumably another provider) once before this visit. - She underwent NIPT testing approximate ly 2 Saturdays prior to this visit through [facility]. - She and her partner do not want to k now the genders of the babies. 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 Plan: Conf irm correct NIPT for twins via [facility], repeat if needed; f/u at [place] ?s Monday for anatomy scan; switch to gummy PNVs; RTC in 2w; call pt with lab update. 06/06/25 -?-?-?-?-?-?-?-?-?-?-?-?- 22w 2d 105.744 kg 131/84 absent unknown A 145 -?-?-?-?-?-?-?-?-?-?-?-?- B 155 active - Azam Santillan is a female with dichorionic diamniotic twins presenting for routine follow-up after recent ultrasound imaging. - She reports experiencing some sharp pa in, which she attributes to stretching effects related to her . - She mentions her feet were really swol elisa on the day of her recent ultrasound visit. - Patient works at the [employer] and had already completed her shift starting at 6:30 AM on the day of this visit. - This is her first ( o ne). - She is currently taking ASA to promote blood flow to the placenta - Continue baby aspirin (blood thinner) to promote blood flow to placenta and support growth - Schedule follow-up appointment in 4 we eks - Continue serial ultrasound monitoring to assess weight discrepancy (cur rently 3% difference between twins) - Monitor for labor risk given d ichorionic diamniotic twin 06/10/25 -?-?-?-?-?-?-?-?-?-?-?-?- 22w 6d 105.914 kg 125/82 absent unknown A 145 -?-?-?-?-?-?-?-?-?-?-?-?- B 155 - Lynne Sanitllan is a female presenting for an ultrasound examination of her twin . - The ultrasound revealed: - Twin A: Positioned showing its butto cks - Twin B: Both heads and the dividing membrane visible - Patient expressed interest in obtaining side view images of the f etuses Plan - Follow up for next ultrasound appointm ent - Attend scheduled MFM (Maternal- M edicine) appointment for high-resolution scan 07/02/25 -?-?-?-?-?-?-?-?-?-?-?-?- w 0d 107.955 kg 122/86 absent unknown A 131 -?-?-?-?-?-?-?-?-?-?-?-?- B 141 active - Azam Santillan is a gravity 1 para 0 patient at 25 weeks and 0 days gestation with dichorionic diamniotic twin here for routine care. - Patient had MFM ultrasound on 5 showing twin with fetus A (female, cephalic, 830 grams, 80th percentile) and fetus B (male, transverse, 725 grams, 39th percentile) with 13% discordancy. - Both babies demonstrate normal anatomy with normal amniotic fluid levels. - Patient reports no specific complaints or concerns during this visit. - NIPT testing has been completed. - Patient is approaching 26 weeks gestat ion with due date of 10/08 based on updated LMP of 01/04. - Schedule her next appointment in 4 weeks - Perform one-hour glucose test today - Continue MFM ultrasounds; her next tennille ointment at [facility] on 07/14 - Plan for weekly visits after 30 weeks - Administer betamethasone shots at 32 w eeks for lung maturation - Conduct anemia check and RPR test betw een 28-30 weeks - Anticipate delivery at 37 weeks or ear lier - Determine route of delivery based on f etal positioning closer to delivery date - Complete HR form for maternity leave, recommended around 28-30 weeks 07/30/25 -?-?-?-?-?-?-?-?-?-?-?-?- 30w 0d 108.409 kg 125/83 absent unstable A 142 -?-?-?-?-?-?-?-?-?-?-?-?- B 151 active - She wells s been monitoring blood glucose levels at home with finger stick testing. - Initial glucose readings were 127, 1 02, 113, 109 mg/dL - Recent readings show improvement wit h occasional elevations to 150 mg/dL and some higher values of 181 and 161 mg/dL when she first started checking - Numbers are trending downward with d ietary modifications - She reports regulating her diet and wells s identified foods that cause glucose spikes. - She notes glucose typically spikes a fter lunch - She denies any current discomfort that would interfere with work activities. 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 - Patient reports both babies are active with increased movement at night. - She stopped working last Monday and is no longer planning to continue working. - Patient denies any acute concerns or symptoms during this visit. - Schedule section at 38 weeks due to breech-breech presentation of both twins - Block delivery date and contact labor and delivery unit - Proceed to 4th floor for NST-BPP ultra sound on both babies for heart rate monitoring - Establish bi-weekly NST-BPP monitoring schedule - Follow up appointment in one week SANA Calculator Estimated Delivery Date Method Current WG Current Estimate 10/08/25 Ultrasound #1 34w 4d Other Estimates 10/15/25 LMP (Uncertain) 33w 4d # 2 Notes Visit Date: 07/30/25 Last Updated by: Angel Schuler MD - Date: 07/22/2025 - [facility] ultrasound at 30 weeks 0 days gestation: Dichorionic diamniotic twin gestation - Fetus A: EFW 1510 grams (82nd percentile), breech presentation - Fetus B: EFW 1401 grams (61st percentile), transverse presentation - Discordancy: 7% Visit Date: 07/02/25 Last Updated by: Angel Schuler MD - Date: 06/23/2025 - [facility] ultrasound: Twin , dichorionic diamniotic, 2nd trimester at 25 weeks 0 days gestation - Fetus A: 830 grams (1 lb 13 oz), 80th percentile, female, cephalic presentation, normal anatomy, normal amniotic fluid - Fetus B: 725 grams (1 lb 10 oz), 39th percentile, male, transverse presentation with head to maternal right, normal anatomy, normal amniotic fluid - Growth discordancy: 13% - Cervix: long and closed on transabdominal ultrasound - NIPT test: completed (results not specified) Visit Date: 06/06/25 Last Updated by: Angel Schuler MD Laboratory, Imaging, and Diagnostic Test Results - Ultrasound (performed in [place]): - Dichorionic diamniotic twin - Baby A: 345 grams (12 ounces), cephalic presentation, normal anatomy survey, female gender, 94th percentile for growth - Baby B: 337 grams, normal anatomy survey, 91st percentile for growth - Weight discrepancy: 3% between twins - Transvaginal cervical length: 4.5 cm - heart rates: Baby A 133 bpm, Baby B 153 bpm Visit Date: 05/21/25 Last Updated by: Angel Schuler MD - NIPT ([email or web address]): - SMA: Negative - Cystic fibrosis: Negative - Trisomy 21, 18, 13: Negative - sex: Male (potentially unreliable due to twin gestation) - Initial OB panel ([facility]): - Hepatitis B: Negative - Hepatitis C: Negative - HIV: Negative - Gonorrhea: Negative - Chlamydia: Negative - Trichomonas: Negative - Hemoglobin: 13.2 g/dL - Urinalysis: Within normal limits - Ultrasound: - Twin gestation confirmed - heartbeats visualized for both twins - Different heart rates observed for each twin Visit Date: 04/16/25 Last Updated by: Randi Painting CNM 24 yo . IUP 14 week,twins. LMP 01/08/25. EDC: 10/10/25 Office Procedures [facility] LOC & Office Proc's Nursing/Assessment Patient Status: Established Patient OB Clinic Nursing Assessment: Medication Reconciliation, Update PMH in EMR and Vital Signs OB Clinic Coordination of Care: Consent,records obtained, informed consent, Education Simp Pt/Fam, Lab and Imaging orders, Results/Orders obtained and Staff clarify orders Special Needs: Heart tones Established Patient Charge Established Patient Point Assignment: 110 Established Patient Point Charge: EP Level 3 (80-115) Assessment & Plan Diagnosis / Problem List (1) Gestational diabetes mellitus: Status: Acute (2) Dichorionic diamniotic twin gestation: Status: Acute Plan Problem List - Twin at 34 weeks 2 days gestation - Breech presentation of both twins Assessment Twin gestation at 34 weeks 2 days with both fetuses in breech presentation. Fetus A weighs 2225 grams (4 pounds 14 ounces, 63rd percentile) and Fetus B weighs 2103 grams (4 pounds 10 ounces, 46th percentile) with 5% discordancy between twins. Both babies are active with appropriate growth parameters. Due to breech-breech presentation, delivery is indicated at 38 weeks gestation for dichorionic . Plan - Schedule section at 38 weeks due to breech-breech presentation of both twins - Block delivery date and contact labor and delivery unit - Proceed to 4th floor for NST-BPP ultrasound on both babies for heart rate monitoring - Establish bi-weekly NST-BPP monitoring schedule - Follow up appointment in one week 1. Progress Reviewed gestational age at 34 weeks 2 days for dichorionic diamniotic twin , growth with Fetus A at 2225 grams (4 pounds 14 ounces, 63rd percentile) and Fetus B at 2103 grams (4 pounds 10 ounces, 46th percentile) with 5% discordancy, and heart rate monitoring planned via NST-BPP. Planned frequent visits (every week until delivery). 2. Instructed patient to monitor movements and report decreases immediately. 3. Testing Counseled on routine third-trimester labs per guidelines. Discussed potential need for ultrasound or monitoring based on risk factors including NST-BPP ultrasound for twin monitoring. 4. Preeclampsia Precaution Educated on preeclampsia signs: severe headache, vision changes, right upper quadrant pain, sudden swelling. Advised urgent reporting of symptoms and discussed blood pressure monitoring if high risk. 5. Labor Precautions Reviewed labor signs: regular contractions, pelvic pressure, back pain, bleeding, or fluid leakage. Instructed to seek immediate care for these symptoms. 6. Lifestyle and Delivery Preparation Reinforced vitamins, nutrition, and safe activity. Discussed plan with scheduled section at 38 weeks due to breech- breech presentation of twins, pain management, and . Advised on labor preparation (e.g., hospital bag) and expectations. 7. Psychosocial Support Assessed her emotional well-being and offered resources for mental health or parenting support.
== END 2025-08-29 09:36 | disposition home or self-care (01) ==
LOC: HODSOBC 08:27
PROVIDERS: Supervising Provider Obstetrics & Gynecology; Visit Provider Obstetrics & Gynecology
DX: O09.893 Supervision of other high risk pregnancies, third trimester (principal); O24.410 Gestational diabetes mellitus in pregnancy, diet controlled; O30.043 Twin pregnancy, dichorionic/diamniotic, third trimester; O32.1XX1 Maternal care for breech presentation, fetus 1; O32.1XX2 Maternal care for breech presentation, fetus 2; Z3A.34 34 weeks gestation of pregnancy
CPT/HCPCS: 99213; G0463

== ENCOUNTER 2025-08-29 09:52 | Outpatient (CLI) | payer OTHER, SELFPAY ==
[2025-08-29 10:27] VITALS: BP 135/77; PULSE 95
[2025-08-29 10:35] VITALS: RESP 100; RESP 16; TEMP 36.8; BMI 37.5
[2025-08-29 10:39] VITALS: BP 143/73; PULSE 96
== END 2025-08-29 11:30 | disposition home or self-care (01) ==
LOC: S4S1 09:53 → S4SX 09:53
PROVIDERS: Referring Provider Obstetrics & Gynecology; Visit Provider Obstetrics & Gynecology
DX: O30.049 Twin pregnancy, dichorionic/diamniotic, unspecified trimester (principal); Z3A.00 Weeks of gestation of pregnancy not specified
CPT/HCPCS: 59025

== ENCOUNTER 2025-08-30 13:37 | Observation (INO) | payer OTHER, SELFPAY ==
[2025-08-30] VITALS (20 sets, daily range): BP systolic 114–138; BP diastolic 67–91; PULSE 75–106; RESP 18–97; TEMP 36.7; O2SAT 96–99; BMI 37.7
--- NOTE | 2025-08-30 14:03 | XR_ITS ---
Examination: Biophysical profile, ultrasound, baby A Date and time of exam: Examination: Biophysical profile, ultrasound Date and time of exam: February 28, 2025, 1500 hours INDICATIONS: Twin gestations, decreased movement today Technique: Multiple transabdominal sonographic images of the pelvis abdomen obtained. Attention is directed to the breathing movement, gross body movement, amniotic fluid volume and tone. Findings: Amniotic fluid index 9.9 cm Total biophysical profile is 8 of 8. breathing movement is 2. Gross body movement is 2. tone is 2. Qualitative amniotic fluid volume is 2 Impression: Biophysical profile is 8 of 8. Baby A Examination: Biophysical profile, ultrasound, baby B INDICATIONS: Twin gestations, decreased movement today Technique: Multiple transabdominal sonographic images of the pelvis abdomen obtained. Attention is directed to the breathing movement, gross body movement, amniotic fluid volume and tone. Findings: Amniotic fluid index 9.9 cm Total biophysical profile is 8 of 8. breathing movement is 2. Gross body movement is 2. tone is 2. Qualitative amniotic fluid volume is 2 Impression: Biophysical profile is 8 of 8. Baby B
[2025-08-30] MEDS: RINGERS LACTATED 1000 ML 1,000 ML 999 ML IV (14:58)
[2025-08-30 15:00] LABS: Basophils # (Auto) 0.0 Thou/mm3 (0.0-0.2); Basophils % (Auto) 0 % (0-2.5); Eosinophils # (Auto) 0.1 Thou/mm3 (0.0-0.5); Eosinophils % (Auto) 1 % (0-10); Hematocrit 34.1 % (36.0-46.0); Hemoglobin 11.9 g/dL (12.0-16.0); Immature Granulocytes Auto 0.02 Thou/mm3 (0.00-0.00); Lymphocytes # (Auto) 1.4 Thou/mm3 (1.0-4.8); Lymphocytes % (Auto) 21 % (10-50); Mean Corpuscular HGB Conc 34.9 g/dl (31.0-37.0); Mean Corpuscular Hemoglobin 32.1 pg (25.0-35.0); Mean Corpuscular Volume 92 fL (80-100); Monocytes # (Auto) 0.6 Thou/mm3 (0.0-0.8); Monocytes % (Auto) 9 % (0-12); Neutrophils # (Auto) 4.6 Thou/mm3 (1.8-7.7); Neutrophils % (Auto) 68 % (37-80); Nucleated Red Blood Cell # 0.00 Thou/mm3 (0.00-0.00); Nucleated Red Blood Cell % 0 /100 WBC (0); Platelet Count 222 Thou/mm3 (140-440); RDW Standard Deviation 42.9 fL (36.4-46.3); Red Blood Count 3.71 Miln/mm3 (4.00-5.20); White Blood Count 6.7 Thou/mm3 (3.6-11.0)
[2025-08-30] MEDS: ACETAMINOPHEN 500 MG TABLET 1000 MG PO (15:04)
[2025-08-30 15:10] LABS: Alanine Aminotransferase 23 U/L (10-49); Albumin, Serum 3.5 gm/dL (3.5-5.0); Albumin/Globulin Ratio 1.5 (1.2-2.2); Alkaline Phosphatase 147 U/L (46-116); Anion Gap 13 (7-16); Aspartate Amino Transferase 22 U/L (0-34); BUN/Creatinine Ratio 14 Ratio (12-20); Bilirubin,Total 1.0 mg/dL (0.3-1.2); Blood Urea Nitrogen 7 mg/dL (9-23); Calcium 8.5 mg/dL (8.3-10.6); Calcium (Corrected) 8.9 mg/dL (8.5-10.1); Carbon Dioxide 18.9 mMol/L (20.0-31.0); Chloride 109 mMol/L (98-107); Creatinine (Component) 0.5 mg/dL (0.6-1.3); Estimated Creatinine Clearance 224.3 mL/min (>60); Globulin 2.4 gm/dL (2.3-3.5); Glucose 79 mg/dL (74-106); LDH (Lactate Dehydrogenase) 178 U/L (120-246); Osmolality,Calculated 278 (275-295); Potassium 3.0 mMol/L (3.4-5.1); Sodium 141 mMol/L (136-145); Total Protein 5.9 gm/dL (5.7-8.2); Uric Acid 6.1 mg/dL (3.1-7.8); eGFR > 60 See Note
[2025-08-30 15:43] LABS: INR 0.9 (0.9-1.3); Partial Thromboplastin Time 28.3 Seconds (22.0-36.0); Prothrombin Time 10.1 Seconds (9.0-12.2)
[2025-08-30 16:15] LABS: Collection Type, Urine Clean Catch
[2025-08-30 16:28] LABS: Creatinine,Random Urine 96 mg/dL (30-125); Protein Total, Random Urine 44 mg/dL (1-14)
[2025-08-30 16:44] LABS: Bacteria,Urine Rare; Bilirubin,Urine Negative (Negative); Blood,Urine Negative (Negative); Clarity,Urine Clear (Clear/Hazy); Color,Urine Lt-Yellow (Lt Yel-Yel); Glucose, Urine Negative (Negative); Ketones,Urine 4+ (Negative); Leukocyte Esterase,Urine Positive (Negative); Nitrite,Urine Negative (Negative); PH,Urine 6.5 (5.0-7.0); Protein,Urine Trace (Neg - Trace); RBC,Urine 7 /hpf (0-3); Specific Gravity,Urine 1.016 (1.001-1.035); Squamous Epithelial Cell,Urine 4 /hpf (0-5); Urobilinogen,Urine Negative mg/dL (0.0-1.0); WBC,Urine 1 /hpf (0-5)
[2025-08-30] MEDS: POTASSIUM CHLORIDE 10% 20 MEQ/15 ML UDC GT (17:26)
== END 2025-08-30 17:26 | disposition home or self-care (01) ==
PROVIDERS: Admitting Provider Obstetrics & Gynecology; Visit Provider Obstetrics & Gynecology
DX: O36.8130 Decreased fetal movements, third trimester, not applicable or unspecified (principal); Z3A.34 34 weeks gestation of pregnancy
CPT/HCPCS: 36415; 59899; 76819; 80053; 80307; 81001; 82570; 83615; 84156; 84550; 85025; 85610; 85730; J7120; A9270

== ENCOUNTER 2025-09-03 09:10 | Outpatient (CLI) | payer OTHER, SELFPAY ==
[2025-09-03] VITALS (38 sets, daily range): BP systolic 128–144; BP diastolic 76–94; PULSE 75–105; RESP 17–97; TEMP 36.8; O2SAT 94–99; BMI 37.7
[2025-09-03 10:23] LABS: Collection Type, Urine Clean Catch
[2025-09-03 10:26] LABS: Basophils # (Auto) 0.0 Thou/mm3 (0.0-0.2); Basophils % (Auto) 1 % (0-2.5); Eosinophils # (Auto) 0.1 Thou/mm3 (0.0-0.5); Eosinophils % (Auto) 1 % (0-10); Hematocrit 35.6 % (36.0-46.0); Hemoglobin 12.2 g/dL (12.0-16.0); Immature Granulocytes Auto 0.03 Thou/mm3 (0.00-0.00); Lymphocytes # (Auto) 1.6 Thou/mm3 (1.0-4.8); Lymphocytes % (Auto) 26 % (10-50); Mean Corpuscular HGB Conc 34.3 g/dl (31.0-37.0); Mean Corpuscular Hemoglobin 31.6 pg (25.0-35.0); Mean Corpuscular Volume 92 fL (80-100); Monocytes # (Auto) 0.6 Thou/mm3 (0.0-0.8); Monocytes % (Auto) 10 % (0-12); Neutrophils # (Auto) 3.9 Thou/mm3 (1.8-7.7); Neutrophils % (Auto) 62 % (37-80); Nucleated Red Blood Cell # 0.00 Thou/mm3 (0.00-0.00); Nucleated Red Blood Cell % 0 /100 WBC (0); Platelet Count 218 Thou/mm3 (140-440); RDW Standard Deviation 42.5 fL (36.4-46.3); Red Blood Count 3.86 Miln/mm3 (4.00-5.20); White Blood Count 6.3 Thou/mm3 (3.6-11.0)
[2025-09-03 10:31] LABS: Bacteria,Urine 1+; Bilirubin,Urine Negative (Negative); Blood,Urine Trace (Negative); Clarity,Urine Clear (Clear/Hazy); Color,Urine Lt-Yellow (Lt Yel-Yel); Glucose, Urine Negative (Negative); Ketones,Urine 2+ (Negative); Leukocyte Esterase,Urine Positive (Negative); Nitrite,Urine Negative (Negative); PH,Urine 7.0 (5.0-7.0); Protein,Urine Trace (Neg - Trace); RBC,Urine 13 /hpf (0-3); Specific Gravity,Urine 1.011 (1.001-1.035); Squamous Epithelial Cell,Urine 1 /hpf (0-5); Urobilinogen,Urine Negative mg/dL (0.0-1.0); WBC,Urine 4 /hpf (0-5)
[2025-09-03 10:43] LABS: Creatinine,Random Urine 78 mg/dL (30-125); Protein Total, Random Urine 38 mg/dL (1-14)
[2025-09-03 11:15] LABS: Fibrinogen 592 mg/dL (175-375); INR 0.9 (0.9-1.3); Partial Thromboplastin Time 29.1 Seconds (22.0-36.0); Prothrombin Time 10.0 Seconds (9.0-12.2)
--- NOTE | 2025-09-03 11:53 | XR_ITS ---
Examination: Biophysical profile, ultrasound, baby A INDICATIONS: Twin gestations decreased movement today Date and time of exam: September 03, 2025, 1152 hours Technique: Multiple transabdominal sonographic images of the pelvis abdomen obtained. Attention is directed to the breathing movement, gross body movement, amniotic fluid volume and tone. Findings: Amniotic fluid index 16.0 cm Total biophysical profile is 8 of 8. breathing movement is 2. Gross body movement is 2. tone is 2. Qualitative amniotic fluid volume is 2 Impression: Biophysical profile is 8 of 8., Baby A Examination: Biophysical profile, ultrasound, baby B Date and time of exam: September 03, 2025, 1158 hours INDICATIONS: Twin gestations, decreased movement today Technique: Multiple transabdominal sonographic images of the pelvis abdomen obtained. Attention is directed to the breathing movement, gross body movement, amniotic fluid volume and tone. Findings: Amniotic fluid index 16.0 cm Total biophysical profile is 8 of 8. breathing movement is 2. Gross body movement is 2. tone is 2. Qualitative amniotic fluid volume is 2 Impression: Biophysical profile is 8 of 8. Baby B
[2025-09-03 12:40] LABS: Alanine Aminotransferase 18 U/L (10-49); Albumin, Serum 3.7 gm/dL (3.5-5.0); Albumin/Globulin Ratio 1.5 (1.2-2.2); Alkaline Phosphatase 158 U/L (46-116); Anion Gap 15 (7-16); Aspartate Amino Transferase 21 U/L (0-34); BUN/Creatinine Ratio 12 Ratio (12-20); Bilirubin,Total 1.0 mg/dL (0.3-1.2); Blood Urea Nitrogen 6 mg/dL (9-23); Calcium 8.8 mg/dL (8.3-10.6); Calcium (Corrected) 9.0 mg/dL (8.5-10.1); Carbon Dioxide 19.0 mMol/L (20.0-31.0); Chloride 109 mMol/L (98-107); Creatinine (Component) 0.5 mg/dL (0.6-1.3); Estimated Creatinine Clearance 224.3 mL/min (>60); Globulin 2.4 gm/dL (2.3-3.5); Glucose 84 mg/dL (74-106); Osmolality,Calculated 281 (275-295); Potassium 3.0 mMol/L (3.4-5.1); Sodium 143 mMol/L (136-145); Total Protein 6.1 gm/dL (5.7-8.2); Uric Acid 5.7 mg/dL (3.1-7.8); eGFR > 60 See Note
[2025-09-03] MEDS: LABETALOL 100 MG TABLET PO (12:46)
== END 2025-09-03 13:05 | disposition home or self-care (01) ==
LOC: S4S1 09:11 → S4SX 09:12
PROVIDERS: Referring Provider Obstetrics & Gynecology; Visit Provider Obstetrics & Gynecology
DX: Z34.90 Encounter for supervision of normal pregnancy, unspecified, unspecified trimester (principal); Z36.9 Encounter for antenatal screening, unspecified; Z3A.00 Weeks of gestation of pregnancy not specified
CPT/HCPCS: 36415; 76819; 80053; 81001; 82570; 84156; 84550; 85025; 85384; 85610; 85730; A9270

== ENCOUNTER 2025-09-05 09:34 | Outpatient (AMB) | payer OTHER, SELFPAY ==
[2025-09-05 09:51] VITALS: BP 151/94; PULSE 86; RESP 18; TEMP 36.7; O2SAT 97; BMI 37.5
--- NOTE | 2025-09-05 09:51 | OBCLNT_ITS ---
Vital Signs 09/05/25 09:51 Height 1.73 m Height Method Stated Weight 112.207 kg Weight Measurement Method Standing Scale BMI 37.5 BP 151/94 H Blood Pressure Source Automatic Cuff Blood Pressure Location Right Upper Arm Position Sitting Respiration 18 Pulse 86 Pulse Source Monitor Temp 98.0 F Temp Source Temporal Artery Scan Pulse Oximetry (%) 97 Oxygen Delivery Method Room Air Allergies/Home Meds Allergies & Medications Allergies No Known Allergies Allergy (Verified 09/05/25 09:52) Medication Reconciliation aspirin 81 mg tablet 81 mg PO QDAY 07/02/25 [History Confirmed 09/05/25] docosahexaenoic acid 200 mg capsule ( DHA) 200 mg PO QDAY 07/02/25 [History Confirmed 09/05/25] blood-glucose meter #1 ea 07/11/25 [Rx Confirmed 09/05/25] lancets 21 gauge #100 ea 07/11/25 [Rx Confirmed 09/05/25] blood sugar diagnostic (Blood Glucose Test strips) #100 ea 09/02/25 [Rx Confirmed 09/05/25] labetalol 100 mg tablet 100 mg PO Q12H #20 tabs 09/03/25 [Rx Confirmed 09/05/25] potassium chloride 20 mEq oral packet 20 meq PO QDAY #30 ea 09/03/25 [Rx Confirmed 09/05/25] Immunizations Immunizations Flu Vaccine in the Last 12 Months: Yes Flu Vaccine Exclusion Criteria: Already Received Care OB Visit Log OB Flowsheet Initial Weight: Not Recorded Date -?-?-?-?-?-?-?-?-?-?-?-?- EGA Weight BP Alb Glu CTX Pres Fundal ht FHR Mov Dilation Station Effacement Hx Notes Visit Note 04/16/25 -?-?-?-?-?-?-?-?-?-?-?-?- 15w 0d 98.089 kg 124/83 absent unknown 15 A 142 -?-?-?-?-?-?-?-?-?-?-?-?- B active 24-year-old g ravida 1 para 0 for OB initial. Patient has a last period January 08, 2025. Estimated due date October 10, 2025. Patient had gone to [place] for vacation last week and was seen in the ER there. Ultrasound done and she has a twin gestation at 14 weeks. And she was given progesterone x 7 days which she completed. She has some spotting now but no cramps. She denies any existing medical problems. She has a previous history she drinks occasionally but none with the . And she had a septorhinoplasty.. 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 Sched roxi RENDON appointment at [facility]. OB panel, NIPT and carrier screen today. I ordered Gummies for her and I started Diclegis to take twice a day. Discussed comfort measures for nausea and vomiting I discussed ER precautions and danger signs and symptoms and to return in 2 weeks with OB. 05/02/25 -?-?-?-?-?-?-?-?-?-?-?-?- 17w 2d 100.244 kg 129/81 absent unknown 20 A 135 -?-?-?-?-?-?-?-?-?-?-?-?- B 145 active - Azam Santillan is a patient with dichorionic diamniotic twins presenting for follow-up after experiencing bleeding and clotting. - She reports bleeding and clotting for approximately one month duration. - Following the bleeding episode, she be rohan experiencing some discharge. - She has pictures of the discharge to show the provider. - She visited the emergency room on April 17 at [facility] due to her s ymptoms. - The ER recommended follow-up with ob xochilt but would not accept her as a patient at that time. - She has been seen by Randi (presumably another provider) once before this visit. - She underwent NIPT testing approximate ly 2 Saturdays prior to this visit through [facility]. - She and her partner do not want to k now the genders of the babies. 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 Plan: Conf irm correct NIPT for twins via [facility], repeat if needed; f/u at [facility]?s Monday for anatomy scan; switch to gummy PNVs; RTC in 2w; call pt with lab update. 06/06/25 -?-?-?-?-?-?-?-?-?-?-?-?- 22w 2d 105.744 kg 131/84 absent unknown A 145 -?-?-?-?-?-?-?-?-?-?-?-?- B 155 active - Azam Santillan is a female with dichorionic diamniotic twins presenting for routine follow-up after recent ultrasound imaging. - She reports experiencing some sharp pa in, which she attributes to stretching effects related to her . - She mentions her feet were really swol elisa on the day of her recent ultrasound visit. 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 - This is her first ( o ne). - She is currently taking ASA to promote blood flow to the placenta - Continue baby aspirin (blood thinner) to promote blood flow to placenta and support growth - Schedule follow-up appointment in 4 we eks - Continue serial ultrasound monitoring to assess weight discrepancy (currently 3% difference between twins) - Monitor for labor risk given d ichorionic diamniotic twin 06/10/25 -?-?-?-?-?-?-?-?-?-?-?-?- 22w 6d 105.914 kg 125/82 absent unknown A 145 -?-?-?-?-?-?-?-?-?-?-?-?- B 155 - Lynne Santillan is a female presenting for an ultrasound examination of her twin . - The ultrasound revealed: - Twin A: Positioned showing its butto cks - Twin B: Both heads and the dividing membrane visible - Patient expressed interest in obtaining side view images of the f etuses Plan - Follow up for next ultrasound appointm ent - Attend scheduled MFM (Maternal- M edicine) appointment for high-resolution scan 07/02/25 -?-?-?-?-?-?-?-?-?-?-?-?- w 0d 107.955 kg 122/86 absent unknown A 131 -?-?-?-?-?-?-?-?-?-?-?-?- B 141 active - Azam Santillan is a gravity 1 para 0 patient at 25 weeks and 0 days gestation with dichorionic diamniotic twin here for routine care. - Patient had MFM ultrasound on 5 showing twin with fetus A (female, cephalic, 830 grams, 80th percentile) and fetus B (male, transverse, 725 grams, 39th percentile) with 13% discordancy. - Both babies demonstrate normal anatomy with normal amniotic fluid levels. - Patient reports no specific complaints or concerns during this visit. - NIPT testing has been completed. - Patient is approaching 26 weeks gestat ion with due date of 10/08 based on updated LMP of 01/04. - Schedule her next appointment in 4 weeks - Perform one-hour glucose test today - Continue MFM ultrasounds; her next tennille ointment at [facility] on 07/14 - Plan for weekly visits after 30 weeks - Administer betamethasone shots at 32 w eeks for lung maturation - Conduct anemia check and RPR test betw een 28-30 weeks - Anticipate delivery at 37 weeks or ear lier - Determine route of delivery based on f etal positioning closer to delivery date - Complete HR form for maternity leave, recommended around 28-30 weeks 07/30/25 -?-?-?-?-?-?-?-?-?-?-?-?- 30w 0d 108.409 kg 125/83 absent unstable A 142 -?-?-?-?-?-?-?-?-?-?-?-?- B 151 active - She wells s been monitoring blood glucose levels at home with finger stick testing. - Initial glucose readings were 127, 1 02, 113, 109 mg/dL - Recent readings show improvement wit h occasional elevations to 150 mg/dL and some higher values of 181 and 161 mg/dL when she first started checking - Numbers are trending downward with d ietary modifications - She reports regulating her diet and wells s identified foods that cause glucose spikes. - She notes glucose typically spikes a fter lunch - She denies any current discomfort that would interfere with work activities. - Continue diet-controlled management for gestational diabetes with finger stick glucose monitoring - Add 15-20 minutes of walking, particul rayna 10-minute walk after lunch to help control postprandial glucose spikes - Complete routine third trimester labor atory testing: CBC and RPR - Monitor positions (currently fet us A breech, fetus B transverse) - if positions hold, section will be needed - Re-evaluate delivery plan at 34 weeks based on positioning - Follow up in 2 weeks - Patient may continue working as [employer]; work restriction forms available upon request - Anticipate delivery around 36 weeks (m id-August) as twins typically deliver 3-4 weeks early 08/29/25 -?-?-?-?--?-?-?-?-?-?-?-?- 34w 2d 112.037 kg 129/87 absent unstable A 145 -?-?-?-?-?-?-?-?-?-?-?-?- B 160 active - Azma Santillan is presenting for routine care at 34 weeks and 2 days gestation with dichorionic diamniotic twin . - Patient reports both babies are active with increased movement at night. - She stopped working last Monday and is no longer planning to continue working. - Patient denies any acute concerns or symptoms during this visit. - Schedule section at 38 weeks due to breech-breech presentation of both twins - Block delivery date and contact labor and delivery unit - Proceed to 4th floor for NST-BPP ultra sound on both babies for heart rate monitoring - Establish bi-weekly NST-BPP monitoring schedule - Follow up appointment in one week 09/05/25 -?-?-?-?-?-?-?-?-?-?-?-?- 35w 2d 112.207 kg 151/94 absent unstable A 130 -?-?-?-?-?-?-?--?-?-?-?-?- B 122 active - Azam Santillan is a patient with diamniotic-dichorionic twin at 35 weeks and 2 days gestation, here for routine care and group B strep testing. - Patient was last seen one week ago and reports feeling good overall. - She denies contractions and reports izabela th babies are active. - Patient reports chronic nasal congesti on, stating I'm always congested. - She picked up prescribed labetalol fro m the pharmacy yesterday but has not started taking it due to pharmacist concerns about safety during . - Patient was advised by pharmacist no t to take medication until discussing with physician. - She has only taken labetalol doses r eceived during previous hospitalization. - Patient was prescribed potassium suppl ementation by another provider. - She reports that [facility] called to inform her that something was approved. - Patient attempted to make an appointme nt but was told that labor and delivery did not have any paperwork from the physician's office. - She denies any leaking of fluid. - Start labetalol as prescribed for blood pressure management during - Schedule delivery at 37 week s (moved up from 38 weeks due to hypertension requiring labetalol) - Obtain lab work today to recheck potas sium and other electrolytes - Group B strep testing performed - Provide patient with printout of calvin shah submitted paperwork for L&D SANA Calculator Estimated Delivery Date Method Current WG Current Estimate 10/08/25 Ultrasound #1 35w 2d Other Estimates 10/15/25 LMP (Uncertain) 34w 2d # 2 Notes Visit Date: 07/30/25 Last Updated by: Angel Schuler MD - Date: 07/22/2025 - [facility] ultrasound at 30 weeks 0 days gestation: Dichorionic diamniotic twin gestation - Fetus A: EFW 1510 grams (82nd percentile), breech presentation - Fetus B: EFW 1401 grams (61st percentile), transverse presentation - Discordancy: 7% Visit Date: 07/02/25 Last Updated by: Angel Schuler MD - Date: 06/23/2025 - [facility] ultrasound: Twin , dichorionic diamniotic, 2nd trimester at 25 weeks 0 days gestation - Fetus A: 830 grams (1 lb 13 oz), 80th percentile, female, cephalic presentation, normal anatomy, normal amniotic fluid - Fetus B: 725 grams (1 lb 10 oz), 39th percentile, male, transverse presentation with head to maternal right, normal anatomy, normal amniotic fluid - Growth discordancy: 13% - Cervix: long and closed on transabdominal ultrasound - NIPT test: completed (results not specified) Visit Date: 06/06/25 Last Updated by: Angel Schuler MD Laboratory, Imaging, and Diagnostic Test Results - Ultrasound (performed in [place]): - Dichorionic diamniotic twin - Baby A: 345 grams (12 ounces), cephalic presentation, normal anatomy survey, female gender, 94th percentile for growth - Baby B: 337 grams, normal anatomy survey, 91st percentile for growth - Weight discrepancy: 3% between twins - Transvaginal cervical length: 4.5 cm - heart rates: Baby A 133 bpm, Baby B 153 bpm Visit Date: 05/21/25 Last Updated by: Angel Schuler MD - NIPT ([facility]): - SMA: Negative - Cystic fibrosis: Negative - Trisomy 21, 18, 13: Negative - sex: Male (potentially unreliable due to twin gestation) - Initial OB panel ([facility]): - Hepatitis B: Negative - Hepatitis C: Negative - HIV: Negative - Gonorrhea: Negative - Chlamydia: Negative - Trichomonas: Negative - Hemoglobin: 13.2 g/dL - Urinalysis: Within normal limits - Ultrasound: - Twin gestation confirmed - heartbeats visualized for both twins - Different heart rates observed for each twin Visit Date: 04/16/25 Last Updated by: Randi Painting CNM 24 yo . IUP 14 week,twins. LMP 01/08/25. EDC: 10/10/25 Office Procedures OBC Clinic LOC & Office Proc's Nursing/Assessment Patient Status: Established Patient OB Clinic Nursing Assessment: Medication Reconciliation, Update PMH in EMR and Vital Signs OB Clinic Coordination of Care: Complex Care and Chronic Disease 1-5, Education Complex Pt/Fam, Consent,records obtained, informed consent, Lab and Imaging orders, Results/Orders obtained and Staff clarify orders Special Needs: Heart tones Miscellaneous Interventions: Culture Specimen Collection Established Patient Charge Established Patient Point Assignment: 155 Established Patient Point Charge: EP Level 4 (120-155) Assessment & Plan Diagnosis / Problem List (1) Gestational diabetes mellitus: Status: Acute (2) Dichorionic diamniotic twin gestation: Status: Acute Plan Problem List - Twin , diamniotic-dichorionic - Hypertension in - Breech presentation Assessment 35-week and 2-day diamniotic-dichorionic twin with hypertension requiring labetalol therapy, necessitating delivery at 37 weeks rather than 38 weeks due to blood pressure management needs. Both fetuses are in breech presentation, precluding vaginal delivery and requiring section. Patient has been prescribed potassium supplementation and requires laboratory reassessment of electrolyte levels. Group B strep testing is due at this visit. Both babies are active with heart rates documented at 130 bpm, though positioning makes monitoring challenging due to cramped intrauterine space. Plan - Start labetalol as prescribed for blood pressure management during - Schedule delivery at 37 weeks (moved up from 38 weeks due to hypertension requiring labetalol) - Obtain lab work today to recheck potassium and other electrolytes - Group B strep testing performed - Provide patient with printout of previously submitted paperwork for L&D 1. Progress Reviewed gestational age (35 weeks 2 days), growth, and heart rate (130 bpm for both twins). Both babies are breech presentation. She plans frequent visits (every 2 weeks until 36 weeks, then weekly). 2. Instructed patient to monitor movements and report decreases immediately. Patient reports both babies are active. 3. Testing Counseled on routine third-trimester labs per guidelines. Group B strep testing performed today. Discussed potential need for ultrasound or monitoring based on risk factors. 4. Preeclampsia Precaution Educated on preeclampsia signs: severe headache, vision changes, right upper quadrant pain, sudden swelling. Advised urgent reporting of symptoms and discussed blood pressure monitoring if high risk. Patient prescribed labetalol for hypertension management. 5. Labor Precautions Reviewed labor signs: regular contractions, pelvic pressure, back pain, bleeding, or fluid leakage. Instructed to seek immediate care for these symptoms. Patient denies contractions. 6. Lifestyle and Delivery Preparation Reinforced vitamins, nutrition, and safe activity. Discussed plan, pain management, and . section scheduled at 37 weeks due to breech presentation and hypertension. Advised on labor preparation (e.g., hospital bag) and expectations. 7. Psychosocial Support Assessed emotional well-being and offered resources for mental health or parenting support.
== END 2025-09-05 10:03 | disposition home or self-care (01) ==
PROVIDERS: Supervising Provider Obstetrics & Gynecology; Visit Provider Obstetrics & Gynecology
DX: O09.893 Supervision of other high risk pregnancies, third trimester (principal); O30.043 Twin pregnancy, dichorionic/diamniotic, third trimester; O32.1XX1 Maternal care for breech presentation, fetus 1; O32.1XX2 Maternal care for breech presentation, fetus 2; O24.410 Gestational diabetes mellitus in pregnancy, diet controlled; O13.3 Gestational [pregnancy-induced] hypertension without significant proteinuria, third trimester; Z3A.35 35 weeks gestation of pregnancy; Z36.85 Encounter for antenatal screening for Streptococcus B
CPT/HCPCS: 99214; G0463

== ENCOUNTER 2025-09-05 11:58 | Observation (INO) | payer OTHER, SELFPAY ==
[2025-09-05 12:52] VITALS: BP 121/79; PULSE 87
[2025-09-05 12:54] VITALS: BP 121/79; PULSE 87; RESP 18; TEMP 36.9; BMI 22.5
[2025-09-05 12:56] LABS: Bacteria,Urine 2+; Bilirubin,Urine Negative (Negative); Blood,Urine 1+ (Negative); Collection Type, Urine Clean Catch; Color,Urine Yellow (Lt Yel-Yel); Glucose, Urine Negative (Negative); Hyaline Casts,Urine < 1 /hpf (0-1); Ketones,Urine 3+ (Negative); Leukocyte Esterase,Urine Positive (Negative); Nitrite,Urine Negative (Negative); PH,Urine 6.5 (5.0-7.0); Protein,Urine 1+ (Neg - Trace); RBC,Urine 22 /hpf (0-3); Specific Gravity,Urine 1.019 (1.001-1.035); Squamous Epithelial Cell,Urine 12 /hpf (0-5); Urobilinogen,Urine Negative mg/dL (0.0-1.0); WBC,Urine 13 /hpf (0-5)
[2025-09-05 13:07] LABS: Creatinine,Random Urine 176 mg/dL (30-125); Protein Total, Random Urine 72 mg/dL (1-14)
[2025-09-05 13:17] LABS: Basophils # (Auto) 0.0 Thou/mm3 (0.0-0.2); Basophils % (Auto) 0 % (0-2.5); Eosinophils # (Auto) 0.1 Thou/mm3 (0.0-0.5); Eosinophils % (Auto) 1 % (0-10); Hematocrit 34.4 % (36.0-46.0); Hemoglobin 11.9 g/dL (12.0-16.0); Immature Granulocytes Auto 0.03 Thou/mm3 (0.00-0.00); Lymphocytes # (Auto) 1.3 Thou/mm3 (1.0-4.8); Lymphocytes % (Auto) 20 % (10-50); Mean Corpuscular HGB Conc 34.6 g/dl (31.0-37.0); Mean Corpuscular Hemoglobin 31.5 pg (25.0-35.0); Mean Corpuscular Volume 91 fL (80-100); Monocytes # (Auto) 0.5 Thou/mm3 (0.0-0.8); Monocytes % (Auto) 7 % (0-12); Neutrophils # (Auto) 4.9 Thou/mm3 (1.8-7.7); Neutrophils % (Auto) 71 % (37-80); Nucleated Red Blood Cell # 0.00 Thou/mm3 (0.00-0.00); Nucleated Red Blood Cell % 0 /100 WBC (0); Platelet Count 223 Thou/mm3 (140-440); RDW Standard Deviation 42.2 fL (36.4-46.3); Red Blood Count 3.78 Miln/mm3 (4.00-5.20); White Blood Count 6.9 Thou/mm3 (3.6-11.0)
[2025-09-05 13:36] LABS: Fibrinogen 592 mg/dL (175-375); INR 0.9 (0.9-1.3); Partial Thromboplastin Time 27.2 Seconds (22.0-36.0); Prothrombin Time 10.0 Seconds (9.0-12.2)
[2025-09-05 13:39] LABS: Alanine Aminotransferase 19 U/L (10-49); Albumin, Serum 3.8 gm/dL (3.5-5.0); Albumin/Globulin Ratio 1.6 (1.2-2.2); Alkaline Phosphatase 153 U/L (46-116); Anion Gap 12 (7-16); Aspartate Amino Transferase 21 U/L (0-34); BUN/Creatinine Ratio 12 Ratio (12-20); Bilirubin,Total 1.1 mg/dL (0.3-1.2); Blood Urea Nitrogen 6 mg/dL (9-23); Calcium 8.9 mg/dL (8.3-10.6); Calcium (Corrected) 9.1 mg/dL (8.5-10.1); Carbon Dioxide 18.7 mMol/L (20.0-31.0); Chloride 110 mMol/L (98-107); Creatinine (Component) 0.5 mg/dL (0.6-1.3); Estimated Creatinine Clearance 172.0 mL/min (>60); Globulin 2.4 gm/dL (2.3-3.5); Glucose 85 mg/dL (74-106); LDH (Lactate Dehydrogenase) 237 U/L (120-246); Osmolality,Calculated 277 (275-295); Potassium 3.3 mMol/L (3.4-5.1); Sodium 141 mMol/L (136-145); Total Protein 6.2 gm/dL (5.7-8.2); Uric Acid 5.5 mg/dL (3.1-7.8); eGFR > 60 See Note
[2025-09-05 13:43] LABS: Clarity,Urine Hazy (Clear/Hazy)
== END 2025-09-05 13:40 | disposition home or self-care (01) ==
PROVIDERS: Admitting Provider Obstetrics & Gynecology; Visit Provider Obstetrics & Gynecology
DX: Z34.03 Encounter for supervision of normal first pregnancy, third trimester (principal); Z3A.35 35 weeks gestation of pregnancy
CPT/HCPCS: 36415; 59025; 59899; 80053; 81001; 82570; 83615; 84156; 84550; 85025; 85384; 85610; 85730

== ENCOUNTER 2025-09-08 12:04 | Outpatient (RCR) | payer OTHER, SELFPAY ==
--- NOTE | 2025-09-08 12:13 | XR_ITS ---
Examination: Biophysical profile, ultrasound twin A INDICATIONS: Twin gestations, supervision of normal pregnancies Date and time of exam: September 06, 2025, 12:17 p.m. Technique: Multiple transabdominal sonographic images of the pelvis abdomen obtained. Attention is directed to the breathing movement, gross body movement, amniotic fluid volume and tone. Findings: Amniotic fluid index 9.1 cm Total biophysical profile is 8 of 8. breathing movement is 2. Gross body movement is 2. tone is 2. Qualitative amniotic fluid volume is 2 Impression: Biophysical profile is 8 of 8. Twin A Examination: Biophysical profile, ultrasound twin B Date and time of exam: September 06, 2025, 12:19 p.m. INDICATIONS: Supervision of twin gestations Technique: Multiple transabdominal sonographic images of the pelvis abdomen obtained. Attention is directed to the breathing movement, gross body movement, amniotic fluid volume and tone. Findings: Amniotic fluid index 9.1 cm Total biophysical profile is 8 of 8. breathing movement is 2. Gross body movement is 2. tone is 2. Qualitative amniotic fluid volume is 2 Impression: Biophysical profile is 8 of 8. Twin B
[2025-09-08 12:38] VITALS: BP 127/87; PULSE 83; RESP 16; TEMP 36.7
[2025-09-08 13:37] VITALS: TEMP 36.7
[2025-09-08] MEDS: ACETAMINOPHEN 325 MG TABLET 650 MG PO (13:37)
== END 2025-09-08 23:59 | disposition home or self-care (01) ==
LOC: S4S1 12:04
PROVIDERS: Referring Provider Obstetrics & Gynecology; Visit Provider Obstetrics & Gynecology
DX: O09.93 Supervision of high risk pregnancy, unspecified, third trimester (principal); O30.043 Twin pregnancy, dichorionic/diamniotic, third trimester; Z3A.35 35 weeks gestation of pregnancy
CPT/HCPCS: 59025; 76819; A9270

== ENCOUNTER 2025-09-10 16:04 | Inpatient (IN) | payer OTHER, SELFPAY ==
[2025-09-10] VITALS (43 sets, daily range): BP systolic 0–162; BP diastolic 0–99; PULSE 82–98; RESP 18–98; TEMP 36.6–37.1; O2SAT 95–99; BMI 37.8
--- NOTE | 2025-09-10 16:09 | XR_ITS ---
EXAMINATION: age Limited, twin gestations TECHNIQUE: Limited transabdominal sonographic images pelvis Date and time: September 10, 2025, 1623 hours INDICATIONS: Headaches, labor evaluation, Twin gestations FINDINGS: Baby A transverse presentation head maternal right spine maternal right Cardiac motion 126 bpm Estimated gestational age 36 weeks 0 days Estimated weight 2724 g Baby B transverse presentation head maternal right Cardiac motion 136 bpm Estimated gestational age 35 weeks 5 days Estimated weight 2729 g IMPRESSION: Twin gestations as above
[2025-09-10] MEDS: ACETAMINOPHEN IVPB 1,000 MG/100 ML VIAL 250 MG IV (16:45)
[2025-09-10] MEDS: RINGERS LACTATED 1000 ML 1,000 ML 999 ML IV (16:46)
[2025-09-10 17:03] LABS: Collection Type, Urine Clean Catch
[2025-09-10 17:07] LABS: Basophils # (Auto) 0.0 Thou/mm3 (0.0-0.2); Basophils % (Auto) 0 % (0-2.5); Eosinophils # (Auto) 0.1 Thou/mm3 (0.0-0.5); Eosinophils % (Auto) 1 % (0-10); Hematocrit 34.1 % (36.0-46.0); Hemoglobin 11.7 g/dL (12.0-16.0); Immature Granulocytes Auto 0.05 Thou/mm3 (0.00-0.00); Lymphocytes # (Auto) 1.2 Thou/mm3 (1.0-4.8); Lymphocytes % (Auto) 17 % (10-50); Mean Corpuscular HGB Conc 34.3 g/dl (31.0-37.0); Mean Corpuscular Hemoglobin 31.5 pg (25.0-35.0); Mean Corpuscular Volume 92 fL (80-100); Monocytes # (Auto) 0.8 Thou/mm3 (0.0-0.8); Monocytes % (Auto) 12 % (0-12); Neutrophils # (Auto) 4.6 Thou/mm3 (1.8-7.7); Neutrophils % (Auto) 69 % (37-80); Nucleated Red Blood Cell # 0.00 Thou/mm3 (0.00-0.00); Nucleated Red Blood Cell % 0 /100 WBC (0); Platelet Count 230 Thou/mm3 (140-440); RDW Standard Deviation 43.0 fL (36.4-46.3); Red Blood Count 3.72 Miln/mm3 (4.00-5.20); White Blood Count 6.7 Thou/mm3 (3.6-11.0)
[2025-09-10 17:18] LABS: Creatinine,Random Urine 27 mg/dL (30-125); Protein Total, Random Urine 14 mg/dL (1-14)
[2025-09-10 17:25] LABS: Alanine Aminotransferase 20 U/L (10-49); Albumin, Serum 3.6 gm/dL (3.5-5.0); Albumin/Globulin Ratio 1.5 (1.2-2.2); Alkaline Phosphatase 159 U/L (46-116); Anion Gap 13 (7-16); Aspartate Amino Transferase 23 U/L (0-34); BUN/Creatinine Ratio 10 Ratio (12-20); Bilirubin,Total 1.2 mg/dL (0.3-1.2); Blood Urea Nitrogen < 5 mg/dL (9-23); Calcium 8.5 mg/dL (8.3-10.6); Calcium (Corrected) 8.8 mg/dL (8.5-10.1); Carbon Dioxide 20.1 mMol/L (20.0-31.0); Chloride 109 mMol/L (98-107); Creatinine (Component) 0.5 mg/dL (0.6-1.3); Estimated Creatinine Clearance 224.7 mL/min (>60); Globulin 2.4 gm/dL (2.3-3.5); Glucose 81 mg/dL (74-106); Osmolality,Calculated 279 (275-295); Potassium 3.4 mMol/L (3.4-5.1); Sodium 142 mMol/L (136-145); Total Protein 6.0 gm/dL (5.7-8.2); Uric Acid 4.7 mg/dL (3.1-7.8); eGFR > 60 See Note
[2025-09-10 17:28] LABS: Fibrinogen 600 mg/dL (175-375); INR 1.0 (0.9-1.3); Partial Thromboplastin Time 29.0 Seconds (22.0-36.0); Prothrombin Time 10.2 Seconds (9.0-12.2)
[2025-09-10 17:34] LABS: Bacteria,Urine 1+; Bilirubin,Urine Negative (Negative); Blood,Urine Negative (Negative); Clarity,Urine Clear (Clear/Hazy); Color,Urine Colorless (Lt Yel-Yel); Glucose, Urine Negative (Negative); Hyaline Casts,Urine < 1 /hpf (0-1); Ketones,Urine Negative (Negative); Leukocyte Esterase,Urine Negative (Negative); Nitrite,Urine Negative (Negative); PH,Urine 7.5 (5.0-7.0); Protein,Urine Negative (Neg - Trace); RBC,Urine 1 /hpf (0-3); Specific Gravity,Urine 1.005 (1.001-1.035); Squamous Epithelial Cell,Urine 1 /hpf (0-5); Urobilinogen,Urine Negative mg/dL (0.0-1.0); WBC,Urine 1 /hpf (0-5)
[2025-09-10] MEDS: METOCLOPRAMIDE INJ 5 MG/ML VIAL 2 ML 10 MG IVP ×2 (17:36→23:44)
[2025-09-10] MEDS: LABETALOL 100 MG TABLET PO (20:40)
--- NOTE | 2025-09-10 23:42 | PD.LDHP ---
Documentation for date of: 09/10/25 OB Labor/Induct. HPI History of Present Illness Chief complaint: headache / elevated BP / 24 years old at 36 weeks Di/Di twins/GDM : 1 Para: 0 Term pregnancies: 0 pregnancies: 0 Living children: 0 History of Abortions: Spontaneous and Elective: 0 History of Vaginal deliveries: 0 History of sections: No History of : No SANA: 10/08/25 Gestational Age (weeks): 36 Gestational Age (days): 0 History of present illness: 24 years old with di/Di twins and both transverse /GDM on diet / elevated BP and headache / Was seen by MFM today and Dr Hermosillo called me at the clinic and recommended delivery . Patient was brought in and counselled on reason and r/B and options of vaginal delivery vs C section and also recommendation from MFM . Patient was given the reason for proceeding with surgery. She was given the risk benefits and options. She chose to proceed with the surgery. Risks of surgery to include risk of infection bleeding, possible injury to the surrounding organs like the urinary bladder, intestines, ureter, uterus, tubes, ovaries, nerves, blood vessels, possible risk of wound dehiscence later on or hernia development later on in future. However the surgery is done when the benefits outweigh the risks Possible risks of blood transfusion and options were also discussed. All questions answered Patient willing to proceed with surgery. History of Present Dating criteria: LMP confirmed by 2nd trimester US Adequate Care: Yes Ultrasounds: other Abnormal ultrasound findings: see records Obstetrical complications: gestational diabetes, gestational hypertension and other (Dichorionic and diamniotic twins ) Labs Maternal Blood Type: O Pos Labs: Positive: Rubella Titre, Negative: RPR, Hepatitis B, HIV, Chlamydia and Gonorrhea and Unknown: Herpes Type 1, Herpes Type 2, Group Beta Strep and Covid-19 Review of Systems Review of Systems Systems Reviewed: All systems reviewed, normal except as documented Narrative Review of Systems: headache slightly improved but does not resolve Past Medical History Surgical History SURGICAL: Negative Section OTHER SURGICAL HX: h/o septorhinoplasty and also Foot surgery and scar tissue was removed Social History 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[employer] SMOKING STATUS: Never smoker 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 Meds Home Medications and Allergies Home Medications ?Medication ?Instructions ?Recorded ?Confirmed ?Type aspirin 81 mg tablet 81 mg PO QDAY 07/02/25 09/05/25 History docosahexaenoic acid 200 mg 200 mg PO QDAY 07/02/25 09/05/25 History capsule ( DHA) Allergies Allergy/AdvReac Type Severity Reaction Status Date / Time No Known Allergies Allergy Verified 09/08/25 13:30 OB Exam Physical Exam Vital signs: Temp Pulse Resp BP Pulse Ox O2 Del Method 97.9 F 93 18 0/0 L 97 Room Air 09/10/25 20:00 09/10/25 21:15 09/10/25 20:00 09/10/25 23:14 09/10/25 21:18 09/10/25 20:00 Narrative: Size > dates uterus non tender Occasional/ contractions non tender FHR is category 1for both babies feta presentation is transverse /transverse Routine Respiratory Exam Respiratory: Present CTA bilaterally Routine Cardiovascular Exam Cardiovascular: Present RRR Routine Abdominal Exam Abdominal: Present soft OB Results Labs 09/10/25 16:40 09/10/25 16:40 Labs: Short CBC 09/10/25 Range/Units 16:40 WBC 6.7 (3.6-11.0) Thou/mm3 Hgb 11.7 L (12.0-16.0) g/dL Hct 34.1 L (36.0-46.0) % Plt Count 230 (140-440) Thou/mm3 BMP 09/10/25 16:40 Sodium 142 Potassium 3.4 Chloride 109 H Carbon Dioxide 20.1 BUN < 5 L Creatinine 0.5 L Glucose 81 Calcium 8.5 Liver Function 09/10/25 Range/Units 16:40 Total Bilirubin 1.2 (0.3-1.2) mg/dL AST 23 (0-34) U/L ALT 20 (10-49) U/L Alkaline Phosphatase 159 H (46-116) U/L Albumin 3.6 (3.5-5.0) gm/dL Urine 09/10/25 Range/Units 14:40 Urine Color Colorless A (Lt Yel-Yel) Urine Clarity Clear (Clear/Hazy) Urine pH 7.5 H (5.0-7.0) Ur Specific [place] 1.005 (1.001-1.035) Urine Protein Negative (Neg - Trace) Urine Glucose (UA) Negative (Negative) Impressions Impression: US both babies are transverse OB Assessment & Plan Assessment and Plan (1) Gestational diabetes mellitus: Status: Acute (2) Dichorionic diamniotic twin gestation: Status: Acute (3) Twin gestation in second trimester: Status: Acute (4) Elevated blood pressure affecting , antepartum: Status: Acute Assessment and plan: 24 years old at 36 weeks with Di/Di twins in transverse presentation and with gestational High BP / Patient recommended delivery now per [facility] due to elevated BP and plan to proceed . patient has been counselled and and is willing to proceed with surgery now / All questions answered Additional Plan Additional Plan Comment: Proceed with emergency Primary LTCS now . (1) Gestational diabetes mellitus Qualifiers: Gestational diabetes mellitus control: diet-controlled Trimester: unspecified trimester Qualified Code(s): O24.410 - Gestational diabetes mellitus in , diet controlled (2) Dichorionic diamniotic twin gestation Qualifiers: Trimester: third trimester Qualified Code(s): O30.043 - Twin , dichorionic/diamniotic, third trimester (3) Twin gestation in second trimester Qualifiers: Multiple gestation type: dichorionic and diamniotic Qualified Code(s): O30.042 - Twin , dichorionic/diamniotic, second trimester
[2025-09-10] MEDS: FAMOTIDINE INJ 10 MG/ML VIAL 2 ML 20 MG IV (23:44)
[2025-09-10] MEDS: ceFAZolin/D5W 2 GM IV 2 GM/100 ML BAG IV (23:44)
[2025-09-11] VITALS (19 sets, daily range): BP systolic 101–136; BP diastolic 56–91; PULSE 77–108; RESP 14–18; TEMP 36.3–37.3; O2SAT 96–99
--- NOTE | 2025-09-11 00:59 | ESOP_ITS ---
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 A timeout was done. Surgical site infection prophylaxis was given Kumar was in place and draining clear urine SCDs were in place After verification of adequacy of anesthesia, a Pfannansteil incision was made 2 cm above the symphysis pubis and carried laterally on the skin and it was carried down to subcutaneous tissue and then to the rectus fascia, the rectus fascia was from underlying muscles by sharp and blunt dissection Peritoneal cavity was entered atraumatically A Oswald retractor placed superiorly, and a bladder blade inferiorly Lower uterine segment was well-formed Incision made in the lower uterine segment, and amniotic sac ruptured, clear amniotic fluid Baby A was delivered as Bibi breech with standard manoevers and without difficulty Baby B , AROM done and clear fluid and then footling breech presentation Kiwi/Forceps ? Cord clamped and cut first for Baby A and baby received by the waiting nursery team same for Baby B and then Cord blood collected, placenta removed spontaneously, uterus exteriorized and closed in a wet lap Uterine cavity clean dry of any remaining membranes with a dry lap, uterine incision closed with the help of 0 Monocryl in 2 layers in a running , inter locking fashion . Hemostasis is good Uterus is firm Both tubes and ovaries look normal Uterus is placed back in the peritoneal cavity in the pelvis Instrument needle and sponge count is correct, hemostasis was checked for again on the uterine incision and it is confirmed Peritoneal closure done with 2-0 Vicryl Rectus abdominis muscles approximated with 2-0 Vicry Rectus fascia approximated with 0 Vicryl running sutures Subcutaneous tissue irrigated closed with and approximated with 3-0 plain catgut Skin approximated with 4-0 Monocryl. Tape dressing applied with Dermabond ABD dressing placed on top Kumar is draining clear urine EBL is 800 cc Patient delivered a liveborn female Baby A and Apgars are and Baby B is LB/Male APGARS are Specimen: other (placenta ) Estimated blood loss (ml): 800 Findings: see procedure / Baby A is bibi Breech Baby B is footling Breech Complications: none Narrative: see procedure Surgical staff [employer] ASSOCIATE JUSTICE is Graeme Palomo Operation Date: 09/11/25 00:15 <No data on this case meets the specified criteria> Diagnosis Problem List Completed Was Problem List Reviewed/Reconciled?: Yes
--- NOTE | 2025-09-11 02:30 | PD.LDDELA1 ---
Data (Multiple) Data Hx Section: No Reason for Primary Section: twins at 36.1 weeks / both transverse / gestational hypertension Maternal Blood Type: O Pos RPR: Non-reactive Labs: Negative: RPR : 1 Term: 0 : 0 Livin Abortions: Spontaneous & Theraputic: 0 Delivery Data A Labor Data Induction/Augmentation Agent: None ROM date: 09/11/25 Amniotic membrane rupture type: Artificial Amniotic fluid description: Clear Delivery Data EDC: 10/08/25 EDC calculated by:: LMP/early US confirmation [place] delivery date: 09/11/25 Gestational age (days): 36 Placenta delivery date: 09/11/25 Delivered by: Antonia Taylor Delivery Method Delivery method: Low Transverse Presentation: Breech (bibi ) Anesthesia Type Anesthesia Type: Spinal Delivery Room Medications Delivery room medications: Pitocin 20 u IV Placenta Placenta delivery description: Spontaneous and Manual Removal Placenta Disposition: Sent to Pathology Cord blood sent to lab: Yes Episiotomy Episiotomy description: None EBL Estimated blood loss (ml): 800 Umbilical Cord cord description: 3 Vessels Data A Data order: 1 Infant Gender - Fetus A: Female
--- NOTE | 2025-09-11 02:33 | OBDSUM_ITS ---
Data (Multiple) Data Hx Section: No Reason for Primary Section: twins in transverse presentation/ gestational Hypertension Maternal Blood Type: O Pos : 1 Term: 0 : 0 Livin Abortions: Spontaneous & Theraputic: 0 Delivery Data B Labor Data ROM date: 09/11/25 Amniotic membrane rupture type: Artificial Amniotic fluid description: Clear Delivery Data EDC: 10/08/25 EDC calculated by:: LMP/early US confirmation Gestational age (weeks): 36 Delivered by: Antonia Taylor Respiratory therapist(s) at delivery: Yes Resist Coater Developer at delivery: Yes Delivery Method Delivery method: Low Transverse Presentation: Footling Delivery Room Medications Delivery room medications: Pitocin 20 u IV Placenta Placental delivery description: Spontaneous and Manual Removal Placenta Disposition: Sent to Pathology Cord blood sent to lab: Yes EBL Estimated blood loss (ml): 800 Umbilical Cord cord description: 3 Vessels Data B [place] Data order: 2 Infant Gender - Fetus B: Male
[2025-09-11] MEDS: ACETAMINOPHEN IVPB 1,000 MG/100 ML VIAL 250 MG IV (03:04)
[2025-09-11] MEDS: OXYTOCIN in NS 20 units 20 UNIT/1,000 ML BAG 125 UNIT IV (06:11)
[2025-09-11] MEDS: DOCUSATE SOD 100 MG CAPSULE PO (09:03)
[2025-09-11] MEDS: LABETALOL 100 MG TABLET PO ×2 (09:03→20:31)
[2025-09-11] MEDS: HYDROcodone/APAP 5/325 TABLET 1 TAB PO ×2 (13:30→20:31)
[2025-09-11] MEDS: IBUPROFEN TAB 400 MG TABLET 800 MG PO (18:05)
[2025-09-12] VITALS (8 sets, daily range): BP systolic 122–137; BP diastolic 80–91; PULSE 92–110; RESP 16–97; TEMP 36.5–36.9; O2SAT 97–100
[2025-09-12 06:06] LABS: Basophils # (Auto) 0.0 Thou/mm3 (0.0-0.2); Basophils % (Auto) 0 % (0-2.5); Eosinophils # (Auto) 0.1 Thou/mm3 (0.0-0.5); Eosinophils % (Auto) 1 % (0-10); Hematocrit 26.9 % (36.0-46.0); Hemoglobin 9.2 g/dL (12.0-16.0); Immature Granulocytes Auto 0.09 Thou/mm3 (0.00-0.00); Lymphocytes # (Auto) 1.7 Thou/mm3 (1.0-4.8); Lymphocytes % (Auto) 14 % (10-50); Mean Corpuscular HGB Conc 34.2 g/dl (31.0-37.0); Mean Corpuscular Hemoglobin 31.8 pg (25.0-35.0); Mean Corpuscular Volume 93 fL (80-100); Monocytes # (Auto) 1.1 Thou/mm3 (0.0-0.8); Monocytes % (Auto) 10 % (0-12); Neutrophils # (Auto) 8.6 Thou/mm3 (1.8-7.7); Neutrophils % (Auto) 74 % (37-80); Nucleated Red Blood Cell # 0.00 Thou/mm3 (0.00-0.00); Nucleated Red Blood Cell % 0 /100 WBC (0); Platelet Count 258 Thou/mm3 (140-440); RDW Standard Deviation 44.2 fL (36.4-46.3); Red Blood Count 2.89 Miln/mm3 (4.00-5.20); White Blood Count 11.5 Thou/mm3 (3.6-11.0)
[2025-09-12] MEDS: IBUPROFEN TAB 400 MG TABLET 800 MG PO ×2 (07:43→15:40)
[2025-09-12] MEDS: DOCUSATE SOD 100 MG CAPSULE PO (08:36)
[2025-09-12] MEDS: LABETALOL 100 MG TABLET PO ×2 (08:37→21:37)
[2025-09-12] MEDS: HYDROcodone/APAP 5/325 TABLET 1 TAB PO ×2 (08:41→15:40)
--- NOTE | 2025-09-12 10:11 | PD.LDPPPRG ---
Subjective Subjective Interval history: The patient is a 24-year-old -1-0-2 status post primary for twins in the breech breech presentation 09/11/2025 that a little after midnight. Dr. Taylor admitted the patient and delivered her. She had a boy and a girl, 1 baby weighed 5 pounds 1 ounce and 1 baby weighed 5 pounds 10 ounces. She is breast and bottlefeeding. This morning she is resting comfortably in bed with father the baby at bedside. Each of them are holding one of the twins. Of note her EDC was 10/08/2025 and she delivered at 36 weeks. Patient was delivered at 36 weeks due to chronic hypertension on labetalol, and a headache. The patient was started on 100 mg of labetolol PO BID at 35 weeks. The maternal- medicine specialist recommended delivery. All her preeclamptic labs were normal. Patient states she is tolerating a general diet, ambulating and her pain is controlled. She states that she is passing flatus. She is breast and bottlefeeding. Exam Vital Signs Temp Pulse Resp BP Pulse Ox O2 Del Method 98.1 F 99 16 136/91 H 98 Room Air 09/12/25 07:45 09/12/25 08:37 09/12/25 07:45 09/12/25 08:37 09/12/25 07:45 09/12/25 07:45 Narrative Exam Patient is alert and orient x 3 in no apparent distress Fundus is firm about 4 cm above umbilicus. Incisions clean dry and intact with a Dermabond type dressing in place. Extremities show 1-2+ edema of ankles no erythema. Objective Labs 09/12/25 04:42 09/10/25 16:40 Labs: Laboratory Results - last 24 hr 09/12/25 04:42 WBC 11.5 H D RBC 2.89 L Hgb 9.2 L D Hct 26.9 L MCV 93 MCH 31.8 MCHC 34.2 RDW Std Deviation 44.2 Plt Count 258 Neut % (Auto) 74 Lymph % (Auto) 14 [place] % (Auto) 10 Eos % (Auto) 1 Baso % (Auto) 0 Neut # (Auto) 8.6 H Lymph # (Auto) 1.7 [place] # (Auto) 1.1 H Eos # (Auto) 0.1 Baso # (Auto) 0.0 Immature Gran # (Auto) 0.09 H Absolute Nucleated RBC 0.00 Immature Gran % 1 H Nucleated RBC % 0 Assessment & Plan Problem List (1) Gestational diabetes mellitus: Problem details: Blood sugars well-controlled Status: Acute (2) Dichorionic diamniotic twin gestation: Status: Acute (3) induced hypertension, : Problem details: Continue labetalol 100 twice daily Status: Acute (4) care following delivery: Problem details: Routine postop orders. Status: Acute Time Spent With Patient Time: Total time spent is greater than 50% in coordination of care (as documented) at patient's floor/unit and/or counseling patient: Time with patient: less than 15 minutes
[2025-09-12] MEDS: FUROSEMIDE INJ 10 MG/ML 4ML VIAL 40 MG IVP (16:28)
[2025-09-12] MEDS: FERRIC SOD GLUC INJ 125 MG in SODIUM CHLORIDE 0.9% 100 ML 110 MG IV (16:34)
[2025-09-13] MEDS: HYDROcodone/APAP 5/325 TABLET 1 TAB PO ×2 (01:11→09:05)
[2025-09-13] MEDS: IBUPROFEN TAB 400 MG TABLET 800 MG PO (01:11)
[2025-09-13 04:19] VITALS: BP 120/81; PULSE 92; RESP 20; TEMP 36.4; O2SAT 97
[2025-09-13 06:11] LABS: Basophils # (Auto) 0.0 Thou/mm3 (0.0-0.2); Basophils % (Auto) 0 % (0-2.5); Eosinophils # (Auto) 0.1 Thou/mm3 (0.0-0.5); Eosinophils % (Auto) 2 % (0-10); Hematocrit 24.3 % (36.0-46.0); Immature Granulocytes Auto 0.09 Thou/mm3 (0.00-0.00); Lymphocytes # (Auto) 1.8 Thou/mm3 (1.0-4.8); Lymphocytes % (Auto) 21 % (10-50); Mean Corpuscular HGB Conc 34.2 g/dl (31.0-37.0); Mean Corpuscular Hemoglobin 31.9 pg (25.0-35.0); Mean Corpuscular Volume 94 fL (80-100); Monocytes # (Auto) 0.9 Thou/mm3 (0.0-0.8); Monocytes % (Auto) 10 % (0-12); Neutrophils # (Auto) 5.8 Thou/mm3 (1.8-7.7); Neutrophils % (Auto) 67 % (37-80); Nucleated Red Blood Cell # 0.00 Thou/mm3 (0.00-0.00); Nucleated Red Blood Cell % 0 /100 WBC (0); Platelet Count 266 Thou/mm3 (140-440); RDW Standard Deviation 45.7 fL (36.4-46.3); Red Blood Count 2.60 Miln/mm3 (4.00-5.20); White Blood Count 8.7 Thou/mm3 (3.6-11.0)
[2025-09-13 06:17] LABS: Hemoglobin 8.3 g/dL (12.0-16.0)
[2025-09-13 08:00] VITALS: BP 138/80; PULSE 89; RESP 18; TEMP 36.7; O2SAT 97
[2025-09-13 09:04] VITALS: BP 138/80; PULSE 89
[2025-09-13] MEDS: LABETALOL 100 MG TABLET PO (09:04)
[2025-09-13] MEDS: DOCUSATE SOD 100 MG CAPSULE PO (09:04)
[2025-09-13 09:06] VITALS: BP 139/80; PULSE 89
[2025-09-13] MEDS: FUROSEMIDE INJ 10 MG/ML 4ML VIAL 40 MG IVP (09:06)
[2025-09-13] MEDS: FERRIC SOD GLUC INJ 125 MG in SODIUM CHLORIDE 0.9% 100 ML 110 MG IV (09:37)
--- NOTE | 2025-09-13 10:35 | PD.LDPPPRG ---
Subjective Subjective Interval history: Delivery type: Patient doing well this morning. No acute complaints. Ambulating, tolerating p.o., and voiding without difficulty. HTN/Pre-E screen negative: No CP, SOB, FUCHS, visual changes, RUQ pain. : Yes Lochia: diminishing Bowel: Flatus + / BM + UOP: Voiding freely Exam Vital Signs Temp Pulse Resp BP Pulse Ox O2 Del Method 98.0 F 89 18 139/80 H 97 Room Air 09/13/25 08:00 09/13/25 09:06 09/13/25 08:00 09/13/25 09:06 09/13/25 08:00 09/13/25 08:00 Constitutional Constitutional: no acute distress Routine HEENT Exam Head: Present normocephalic and atraumatic Eye: Present EOMI and PERRL ENT: Present mucous membranes moist Routine Neck Exam Neck: Present supple and trachea midline Routine Respiratory Exam Respiratory: Present chest non-tender, lungs clear, normal breath sounds and no resp distress Routine Cardiovascular Exam Cardiovascular: Present RRR Routine Abdominal Exam Abdominal: Present soft and normoactive bowel sounds Routine Extremities Exam Extremities: Present full ROM Routine Skin Exam Skin: Present intact, dry and warm Routine Neurological Exam Neurological: Present alert, oriented X3 and CN II-XII intact Routine Psychiatric Exam Psychiatric: Present normal affect and normal thought process Objective Labs 09/13/25 04:35 09/10/25 16:40 Labs: Laboratory Results - last 24 hr 09/13/25 04:35 WBC 8.7 RBC 2.60 L Hgb 8.3 L Hct 24.3 L MCV 94 MCH 31.9 MCHC 34.2 RDW Std Deviation 45.7 Plt Count 266 Neut % (Auto) 67 Lymph % (Auto) 21 [place] % (Auto) 10 Eos % (Auto) 2 Baso % (Auto) 0 Neut # (Auto) 5.8 Lymph # (Auto) 1.8 [place] # (Auto) 0.9 H Eos # (Auto) 0.1 Baso # (Auto) 0.0 Immature Gran # (Auto) 0.09 H Absolute Nucleated RBC 0.00 Immature Gran % 1 H Nucleated RBC % 0 Assessment & Plan Problem List (1) Gestational diabetes mellitus: Problem details: Blood sugars well-controlled Status: Acute (2) Dichorionic diamniotic twin gestation: Status: Acute (3) induced hypertension, : Problem details: Continue labetalol 100 twice daily Status: Acute (4) care following delivery: Status: Acute Assessment and plan: PPD/POD#2 1. Continue routine care 2. Transition to PO meds. 3. Encourage to ambulate/ breast-feed 4. Anticipate discharge home today. Time Spent With Patient Time: Total time spent is greater than 50% in coordination of care (as documented) at patient's floor/unit and/or counseling patient:
--- NOTE | 2025-09-13 10:37 | PD.LDDS ---
DS: Providers Provider Date of admission: 09/10/25 18:32 Primary care physician: Physician No Primary/Family Admitting Provider: Antonia Taylor MD Attending Provider on Admission: Angel Schuler MD Consults: 09/11/25 01:50 Referral Routine Comment: Attending Provider on DC: Angel Schuler MD Discharging Provider: Angel Schuler MD DS: Diagnosis Discharge Diagnosis (1) care following delivery: Status: Acute (2) induced hypertension, : Status: Acute (3) Elevated blood pressure affecting , antepartum: Status: Acute (4) Dichorionic diamniotic twin gestation: Status: Acute Problem List Completed Was Problem List Reviewed/Reconciled?: Yes Summary/Hosp Course Brief History: 24 years old with di/Di twins and both transverse /GDM on diet / elevated BP and headache / Was seen by MFM today and Dr Hermosillo called me at the clinic and recommended delivery . Patient was brought in and counselled on reason and r/B and options of vaginal delivery vs C section and also recommendation from MFM . Patient was given the reason for proceeding with surgery. She was given the risk benefits and options. She chose to proceed with the surgery. Risks of surgery to include risk of infection bleeding, possible injury to the surrounding organs like the urinary bladder, intestines, ureter, uterus, tubes, ovaries, nerves, blood vessels, possible risk of wound dehiscence later on or hernia development later on in future. However the surgery is done when the benefits outweigh the risks Possible risks of blood transfusion and options were also discussed. All questions answered Patient willing to proceed with surgery. Peripartum Data Delivery Method: Low Transverse Episiotomy Description: None Procedures: Procedures Operation Date: 09/11/25 00:15 Actual Procedure Side Surgeon p in OB Not Applicable Antonia Taylor MD Time Spent with Patient Time attestation: Total time spent providing and/or coordinating discharge services: Exam Vital Signs Temp Pulse Resp BP Pulse Ox O2 Del Method 98.0 F 89 18 139/80 H 97 Room Air 09/13/25 08:00 09/13/25 09:06 09/13/25 08:00 09/13/25 09:06 09/13/25 08:00 09/13/25 08:00 Discharge Plan Plan Patient Disposition: HOME (Self Care) Patient condition on transfer: Stable Prescriptions/Referrals Prescriptions/Med Rec: New hydrocodone-acetaminophen 5-325 mg tablet 1 tab PO Q6H MDD 4 PRN (Reason: pain) 5 Days Qty: 20 0RF docusate sodium [Stool Softener] 100 mg capsule 100 mg PO QDAY 30 Days Qty: 30 0RF ibuprofen 600 mg tablet 600 mg PO Q6H MDD 4 PRN (Reason: fever or pain) 10 Days Qty: 40 0RF Continued aspirin 81 mg tablet 81 mg PO QDAY DHA 200 mg capsule 200 mg PO QDAY (DME) blood-glucose meter Kit See Rx Instructions .MEDSUPPLY Qty: 1 0RF Rx Instructions: As directed, 4 times a day (DME) lancets 21 gauge misc See Rx Instructions .MEDSUPPLY Qty: 100 0RF Rx Instructions: As directed, 4 times a day (DME) Blood Glucose Test Strip See Rx Instructions .MEDSUPPLY Qty: 100 6RF Rx Instructions: As directed, 4 times a day labetalol 100 mg tablet 100 mg PO Q12H Qty: 20 0RF potassium chloride 20 mEq packet 20 meq PO QDAY Qty: 30 0RF Referrals: Angel Schuler MD [Physician, CYTOGENETICS TECHNOLOGIST] No Primary/Family,Physician [Primary Care Provider] Patient/Caregiver Discharge Instructions Meds to Beds: Yes Discharge Activity: activity as tolerated Education Materials: After Delivery Concerns, After a , C Section Dc, Feel Healthy After Print Language: Kiswahili Stand Alone Forms: Kalina Award Info., Patient Portal Info Letter, DC from Surgery Discharge Order Discharge Orders: Discharge (Routine); Ordered 09/13/25 Ordered By: Angel Schuler Planned Discharge Date 09/13/25 (4) Dichorionic diamniotic twin gestation Qualifiers: Trimester: third trimester Qualified Code(s): O30.043 - Twin , dichorionic/diamniotic, third trimester
== END 2025-09-13 11:20 | disposition home or self-care (01) | DRG 788 ==
LOC: S4SX 09-11 06:00 → S4NX 09-11 06:00
PROVIDERS: Obstetrics & Gynecology; Admitting Provider Obstetrics & Gynecology; Visit Provider Obstetrics & Gynecology
PROC: 10D00Z1 Extraction of Products of Conception, Low, Open Approach (ICD-10-PCS; CPT 59514; principal; 2025-09-11)
DX: O13.4 Gestational [pregnancy-induced] hypertension without significant proteinuria, complicating childbirth (principal); O32.8XX2 Maternal care for other malpresentation of fetus, fetus 2; O32.1XX1 Maternal care for breech presentation, fetus 1; Z37.2 Twins, both liveborn; Z3A.36 36 weeks gestation of pregnancy; O30.043 Twin pregnancy, dichorionic/diamniotic, third trimester; O24.420 Gestational diabetes mellitus in childbirth, diet controlled
CPT/HCPCS: 36415; 59025; 59409; 76815; 80053; 81001; 82570; 84156; 84550; 85025; 85384; 85610; 85730; 86850; 86900; 86901; 94762; A4217; A4314; A4649; J0131; J0689; J1200; J1938; J2274; J2371; J2590; J2765; J2916; J3010; J3490; J7050; J7120; S0191; A9270; J2270

== ENCOUNTER 2025-09-21 00:57 | Emergency (ER) | payer OTHER, SELFPAY ==
[2025-09-21 01:14] VITALS: BP 138/90; PULSE 88; RESP 18; TEMP 36.8; O2SAT 97; BMI 32.9
--- NOTE | 2025-09-21 01:19 | XR_ITS ---
Examination: Transvaginal ultrasound of the pelvis, complete Technique: Transvaginal sonographic images pelvis performed using aquino scale imaging Exam date and time: September 21, 2025, 0203 hours INDICATIONS: Postop 1 week ago followed by heavy vaginal bleeding and pelvic pain FINDINGS: Uterus 14.2 cm Poorly visualized fluid versus blood in the endometrium measuring up to 2 cm in dimension Ovaries are obscured by bowel gas IMPRESSION: enlarged uterus Mild fluid versus blood in the endometrium but no definite retained products of conception.
--- NOTE | 2025-09-21 01:20 | PD.EDRME ---
Rapid Medical Screening Exam RME Arrival date/time: 09/21/25 00:57 This is a case of 34-year-old female with no medical history came in in the emergency room due to vaginal bleeding with blood clots today patient status post section 1 week ago Chief Complaint: Vaginal Bleeding Time Seen by Provider: 09/21/25 00:58 Vital signs: Vital Signs Temperature 98.2 F 09/21/25 01:14 Pulse Rate 88 09/21/25 01:14 Respiratory Rate 18 09/21/25 01:14 Blood Pressure 138/90 H 09/21/25 01:14 Pulse Oximetry (%) 97 09/21/25 01:14 Oxygen Delivery Method Room Air 09/21/25 01:14 Exam: Mild tenderness suprapubic area no guarding no rebound no rigidity Clinical Impression: Vaginal bleeding
[2025-09-21 01:46] LABS: Collection Type, Urine Voided
[2025-09-21 01:51] LABS: Bilirubin,Urine Negative (Negative); Blood,Urine 3+ (Negative); Calcium Oxalate Crystals,Urine 1+; Clarity,Urine Turbid (Clear/Hazy); Glucose, Urine Negative (Negative); Ketones,Urine Negative (Negative); Leukocyte Esterase,Urine Positive (Negative); Nitrite,Urine Negative (Negative); PH,Urine 6.5 (5.0-7.0); Protein,Urine 1+ (Neg - Trace); RBC,Urine 351 /hpf (0-3); Specific Gravity,Urine 1.024 (1.001-1.035); Squamous Epithelial Cell,Urine 1 /hpf (0-5); Urobilinogen,Urine Negative mg/dL (0.0-1.0); WBC,Urine 63 /hpf (0-5)
[2025-09-21 01:54] LABS: Color,Urine Lt-Orange (Lt Yel-Yel)
[2025-09-21 01:56] LABS: Basophils # (Auto) 0.1 Thou/mm3 (0.0-0.2); Basophils % (Auto) 1 % (0-2.5); Eosinophils # (Auto) 0.2 Thou/mm3 (0.0-0.5); Eosinophils % (Auto) 3 % (0-10); Hematocrit 32.3 % (36.0-46.0); Hemoglobin 10.3 g/dL (12.0-16.0); Immature Granulocytes Auto 0.03 Thou/mm3 (0.00-0.00); Lymphocytes # (Auto) 2.3 Thou/mm3 (1.0-4.8); Lymphocytes % (Auto) 30 % (10-50); Mean Corpuscular HGB Conc 31.9 g/dl (31.0-37.0); Mean Corpuscular Hemoglobin 30.7 pg (25.0-35.0); Mean Corpuscular Volume 96 fL (80-100); Monocytes # (Auto) 0.7 Thou/mm3 (0.0-0.8); Monocytes % (Auto) 9 % (0-12); Neutrophils # (Auto) 4.2 Thou/mm3 (1.8-7.7); Neutrophils % (Auto) 56 % (37-80); Nucleated Red Blood Cell # 0.00 Thou/mm3 (0.00-0.00); Nucleated Red Blood Cell % 0 /100 WBC (0); Platelet Count 551 Thou/mm3 (140-440); RDW Standard Deviation 48.2 fL (36.4-46.3); Red Blood Count 3.35 Miln/mm3 (4.00-5.20); White Blood Count 7.4 Thou/mm3 (3.6-11.0)
[2025-09-21 02:13] LABS: Alanine Aminotransferase 16 U/L (10-49); Albumin, Serum 4.1 gm/dL (3.5-5.0); Albumin/Globulin Ratio 1.5 (1.2-2.2); Alkaline Phosphatase 131 U/L (46-116); Anion Gap 12 (7-16); Aspartate Amino Transferase 18 U/L (0-34); BUN/Creatinine Ratio 13 Ratio (12-20); Bilirubin,Total 0.8 mg/dL (0.3-1.2); Blood Urea Nitrogen 13 mg/dL (9-23); Calcium 8.6 mg/dL (8.3-10.6); Calcium (Corrected) 8.6 mg/dL (8.5-10.1); Carbon Dioxide 24.4 mMol/L (20.0-31.0); Chloride 109 mMol/L (98-107); Creatinine (Component) 1.0 mg/dL (0.6-1.3); Estimated Creatinine Clearance 101.1 mL/min (>60); Globulin 2.7 gm/dL (2.3-3.5); Glucose 87 mg/dL (74-106); Osmolality,Calculated 287 (275-295); Potassium 3.9 mMol/L (3.4-5.1); Sodium 145 mMol/L (136-145); Total Protein 6.8 gm/dL (5.7-8.2); eGFR > 60 See Note
[2025-09-21 03:57] VITALS: BP 153/113; PULSE 82; RESP 20; TEMP 36.8; O2SAT 99
--- NOTE | 2025-09-21 04:01 | PRELIM_ITS ---
Pelvic ultrasound (transvaginal). September 21, 2025 0203 hours Clinical history: Vaginal bleeding Technique: Real-time, grayscale, transvaginal pelvic ultrasound was performed using Duplex scanning including arterial inflow, venous outflow, color and spectral Doppler. Comparison: No prior study is available for comparison. Findings: Uterus is 14.2 x 7.4 x 10.1 cm. scar is noted. Endometrium is 2.0 cm thick, distended with endometrial clot/fluid. The ovary is not visualized. No vascular retained products of conception identified. No free fluid. Impression: Large uterus. Endometrial fluid/clot, without vascular retained products of conception. Nonvisualized ovaries. Report Electronically Signed By: Sina Hanna 09/21/2025 4:01:25 AM [EST]
--- NOTE | 2025-09-21 05:27 | PD.EDVAGBL ---
ED OB Contraction Preg RMI/HPI General Chief complaint: Vaginal Bleeding Stated complaint: VAGINAL BLEEDING Time Seen by Provider: 09/21/25 00:58 Arrival date/time: 09/21/25 00:57 RME / HPI RME / HPI Narrative: 09/21/25 00:57 This is a case of 34-year-old female with no medical history came in in the emergency room due to vaginal bleeding with blood clots today patient status post section [address] SHAIKH MAIN ED EVALUATION: Patient presents approximately 1 week [employer]ANCE [employer]ANCE s/p and with passage of several large clots within the last 24-48 hours with associated cramping. No fever, chills. vomiting, diarrhea, or near-syncope. PMH: HTN PSH: Allergies: KNDA Social: Denies alcoholism and illicit drug abuse Exam: Mild tenderness suprapubic area no guarding no rebound no rigidity Impression: Vaginal bleeding Related Data Home Medications ?Medication ?Instructions ?Recorded ?Confirmed aspirin 81 mg tablet 81 mg PO QDAY 07/02/25 09/05/25 docosahexaenoic acid 200 mg 200 mg PO QDAY 07/02/25 09/05/25 capsule ( DHA) Previous Rx's ?Medication ?Instructions ?Recorded blood-glucose meter #1 ea 07/11/25 lancets 21 gauge #100 ea 07/11/25 blood sugar diagnostic (Blood #100 ea 09/02/25 Glucose Test strips) labetalol 100 mg tablet 100 mg PO Q12H #20 tabs 09/03/25 potassium chloride 20 mEq oral 20 meq PO QDAY #30 ea 09/03/25 packet docusate sodium 100 mg capsule 100 mg PO QDAY 30 days #30 caps 09/13/25 (Stool Softener) ibuprofen 600 mg tablet 600 mg PO Q6H PRN fever or pain 10 09/13/25 days #40 tabs labetalol 100 mg tablet 100 mg PO BID #60 tabs 09/21/25 nitrofurantoin 100 mg PO BID 5 days #10 caps 09/21/25 monohydrate/macrocrystals 100 mg capsule (Macrobid) Allergies Allergy/AdvReac Type Severity Reaction Status Date / Time No Known Allergies Allergy Verified 09/21/25 00:58 Review of Systems Review of Systems Systems Reviewed: All systems reviewed, normal except as documented Past Medical History Past Medical History RESPIRATORY: Positive Asthma (as a child) ENDOCRINE: Positive Endocrine Disorders Family History FAMILY HISTORY: Positive Family Psychiatric Problems (anxiety, depression, PTSD), Family Respiratory Disorders (asthma), Family Cardiac Disorders (Mother-Mitral valve prolapse) and Family Cancer (stomach, skin) Surgical History SURGICAL: Positive Ear Surgery, Nose Surgery (septum rhinoplasty) and Joint Replacement (removal of excessive foot tissue) ED Exam Narrative Physical exam: GEN. APPEARANCE: The patient is alert awake oriented X-3 under no distress, lying down comfortably, does not look ill/toxic. Patient has good eye contact. Patient is cooperative. VITALS: Initial vitals were reviewed and the pulse ox is 99%, which is normal according to my interpretation HEENT: Normocephalic, atraumatic and nontender. Pupils are equal and reactive. Oral mucosa is moist. NECK: Supple, nontender, no meningismus, no JVD. There is no thyromegaly and no lymphadenopathy. CHEST: Nontender on palpation no deformity and no crepitus. CARDIOVASCULAR: Heart regular rhythm, no murmur or gallop rub or extra beats. LUNGS: Clear to auscultation bilaterally with symmetrical chest rise. No laboring tachypnea or wheezing. No intercostal subcostal retraction. No rales and no rhonchi. ABDOMEN: Soft, obese, well-healing transverse incision with no cellulitis, nontender to palpation, no guarding or rebound tenderness. There are no abnormal masses palpated. No pulsatile masses or bruits. Active and normal bowel sounds. SPECULUM: Several small clots within vault, cervical os is closed. EXTREMITIES: Normal inspection and palpation. No edema. No cyanosis. Patient is able to move all 4 extremities well SKIN: Warm and dry, no rashes noted. MUSCULOSKELETAL: No lumbar or midline bony tenderness. There is no CVA tenderness. No paraspinal muscle spasm or tenderness. NEURO: Cranial nerves II through XII grossly intact. There are no focal neurologic deficits noted. GCS is 15 PSYCHIATRIC: Patient is in normal mood and affect, cooperative. LYMPHATICS: No major lymphadenopathy noted. Course Quality Measures none Orders Category Date Time Status US transvaginal Stat Exams 09/21/25 01:19 Taken CBC Stat Lab 09/21/25 01:34 Completed CMP [Comprehensive Metabolic Panel] Stat Lab 09/21/25 01:34 Completed Urinalysis Stat Lab 09/21/25 01:40 Completed Oseltamivir [Tamiflu] Med 09/21/25 05:43 Discontinued 45 mg PO X1 ONE Vital Signs Vital signs: Vital Signs Temperature 98.2 F 09/21/25 01:14 Pulse Rate 88 09/21/25 01:14 Respiratory Rate 18 09/21/25 01:14 Blood Pressure 138/90 H 09/21/25 01:14 Pulse Oximetry (%) 97 09/21/25 01:14 Oxygen Delivery Method Room Air 09/21/25 01:14 Vaginal Bleeding MDM Narrative MDM Narrative: Scribe Attestation: ILeela, am scribing for and in the presence of Dr. Shaikh. Provider Notation: Although this document has been carefully reviewed, there may still be some phonetic and other typographical errors. These errors are purely grammatical due to imperfections in the software program and should not be construed in any way to compromise the substance of the patient's medical care during this visit. Patient presents approximately 1 week [employer] s/p and with passage of several large clots within the last 24-48 hours with associated cramping. No fever, chills. vomiting, diarrhea, or near-syncope. Please see PE findings. Laboratory markers, including CBC and serum chemistries, demonstrated a WBC of 7.4, patient mildly elevated with Hgb of 10.3, elevated platelet count of 551. Serum chemistries essentially unremarkable with normal renal function. UA demonstrates evidence of hematuria, pyuria, and calcium oxylates, and alkaline phophates with no evidence of bacteuria. Patietn was observed for several hours and remained stable. Transvaginal US performed and demonstrated thickened endometrium and enlarged uterus with no sign of placental fragment retention. Blood pressure increased throughout ED stay. Patient diagnosed with gestational hypertension and induced hypertension. 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 Final diagnosis is bleeding. Patient data External records reviewed:: [facility] previous records (No prior ED records available for review.) Clinical information provided by:: patient Social determinants that could affect healthcare access:: none Patient has the following chronic illnesses:: None reported. How is presenting disease/condition affected by chronic disease/condition?: no chronic disease Evaluation data The following diagnostics were reviewed and interpreted by me:: lab results and radiology exam(s) Lab and/or radiology exams considered but not ordered:: None Interpretation Summary: Radiology Transvaginal US: Findings: Uterus is 14.2 x 7.4 x 10.1 cm. scar is noted. Endometrium is 2.0 cm thick, distended with endometrial clot/fluid. The ovary is not visualized. No vascular retained products of conception identified. No free fluid. Impression: Large uterus. Endometrial fluid/clot, without vascular retained products of conception. Nonvisualized ovaries. Medications / Prescriptions Medications or Prescriptions considered but not ordered:: None Medication administrations:: Medication Administration History Discontinued Medications Oseltamivir Phosphate (Oseltamivir 6 Mg/Ml) 45 mg PO X1 ONE Stop: 09/21/25 05:44 Last Admin: 09/21/25 05:50 Dose: Not Given Documented By: ERICA Non-Admin Reason: Cancelled by Provider See above if any Consultations Consultation(s) initiated? (list below): No Diagnosis Vaginal Bleeding Differential Diagnosis: dysfunctional uterine bleeding, menometrorrhagia and vaginal bleeding Most likely diagnosis given after review of the tests above:: bleed Admission Indicated Admission indicated?: not indicated Explain why admission is indicated or not indicated:: Patient does not meet admission criteria Admission Request Was there a request for admission?: No Disposition Plan Disposition Plan: Discharge Discharge Attestation Discharge Attestation: The patient and all family members were given an opportunity to ask questions and understood the discharge instructions. Discharge instructions specifically effects, indications for sooner follow up or return to the emergency department, and the expected course of current diagnosis. Patient condition: Stable Discharge Plan Plan Patient Disposition: HOME (Self Care) Prescriptions/Referrals Prescriptions/Med Rec: No Action aspirin 81 mg tablet 81 mg PO QDAY DHA 200 mg capsule 200 mg PO QDAY (DME) blood-glucose meter Kit See Rx Instructions .MEDSUPPLY Qty: 1 0RF Rx Instructions: As directed, 4 times a day (DME) lancets 21 gauge misc See Rx Instructions .MEDSUPPLY Qty: 100 0RF Rx Instructions: As directed, 4 times a day (DME) Blood Glucose Test Strip See Rx Instructions .MEDSUPPLY Qty: 100 6RF Rx Instructions: As directed, 4 times a day labetalol 100 mg tablet 100 mg PO Q12H Qty: 20 0RF potassium chloride 20 mEq packet 20 meq PO QDAY Qty: 30 0RF docusate sodium [Stool Softener] 100 mg capsule 100 mg PO QDAY 30 Days Qty: 30 0RF ibuprofen 600 mg tablet 600 mg PO Q6H MDD 4 PRN (Reason: fever or pain) 10 Days Qty: 40 0RF Referrals: Bernadine Fletcher MD [Primary Care Provider, Family Practice] - In 1 week Problem List Clinical Impression: bleeding Patient/Caregiver Discharge Instructions Print Language: Hong Konger Stand Alone Forms: Kalina Award Info., Patient Portal Info Letter
[2025-09-21 05:38] VITALS: BP 173/118; PULSE 91
[2025-09-21 06:02] VITALS: BP 138/96; PULSE 82; RESP 18; TEMP 36.9; O2SAT 98
[2025-09-21 06:29] VITALS: BP 138/90; PULSE 80; RESP 23; O2SAT 96
== END 2025-09-21 06:30 | disposition home or self-care (01) ==
PROVIDERS: Nurse Practitioner Family; Emergency Provider Emergency Medicine; PCP Family Medicine
DX: O72.2 Delayed and secondary postpartum hemorrhage (principal)
CPT/HCPCS: 36415; 76830; 80053; 81001; 85025; 99283